=== PATIENT | male | born 1935 | race Caucasian/White ===

== ENCOUNTER 2017-12-10 15:45 | Emergency (ER) | payer MEDICARE, SELFPAY ==
[2017-12-10 16:02] VITALS: BP 178/88; PULSE 93; RESP 13; TEMP 36.6; O2SAT 98
--- NOTE | 2017-12-10 16:32 | DI.CT.S_ITS ---
PROCEDURE: CT HEAD/BRAIN WO CON INDICATIONS: ETOH fall TECHNIQUE: Noncontrast 4.5 mm thick angled axial sections acquired from the foramen magnum to the vertex, with coronal and sagittal reformats. For radiation dose reduction, the following was used: automated exposure control, adjustment of mA and/or kV according to patient size. COMPARISON: None. FINDINGS: Image quality: Excellent. CSF spaces: Basal cisterns are patent. No extra-axial fluid collections. The ventricles are symmetric in size and shape. Brain: No intracranial bleeds or masses. There is cerebral volume loss for age, with resultant ventricular and sulcal prominence. There are periventricular and deep white matter chronic small vessel ischemic changes. There is intracranial internal carotid artery and vertebral artery atherosclerosis. Skull and face: Calvarium and visualized facial bones appear intact, without suspicious lesions. Sinuses: Visualized sinuses and mastoids are clear. IMPRESSION: No acute intracranial disease process. Dictated by: Lenora Braxton MD, PhD on 12/10/2017 at 16:58 Approved by: Lenora Braxton MD, PhD on 12/10/2017 at 17:00
--- NOTE | 2017-12-10 16:32 | DI.CT.S_ITS ---
PROCEDURE: CT CERVICAL SPINE WO CON INDICATIONS: fall ETOH TECHNIQUE: Noncontrast 3 mm thick sections acquired from the skull base to the T4 level. Sagittal and coronal reformats were then constructed. For radiation dose reduction, the following was used: automated exposure control, adjustment of mA and/or kV according to patient size. COMPARISON: None. FINDINGS: Image quality: Excellent. Bones: No fractures or dislocations. Visualized superior ribs are intact. Soft tissues: Prevertebral soft tissues are normal in thickness. No paravertebral hematomas. No apical pneumothoraces. 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 Dictated by: Todd Graff M.D. on 12/10/2017 at 17:00 Approved by: Todd Graff M.D. on 12/10/2017 at 17:01
--- NOTE | 2017-12-10 16:47 | PC.NURSE ---
Pt reports fell forward slipped on tile floor approx 16 hours ago, was holding a glass that broke upon impact, struck his face on broken glass. He denies loc/dizziness/nausea, multiple lacerations to lt cheek/nose/lt brow, denies headache, reports midline neck pain that is tender on exam, placed in c-collar at time of exam, MD Duong notified
[2017-12-10] MEDS: TET,DIPH,PERTUSS(ACELL),VAC/PF 0.5 ML SYRINGE IM (17:43)
--- NOTE | 2017-12-10 17:43 | ED.HEATRA ---
HPI - Head Injury General Chief complaint: Trauma Stated complaint: FALL, HIT HEAD Time Seen by Provider: 12/10/17 16:32 Source: patient History of Present Illness HPI Narrative: Patient is a 82-year-old male who presents after ground level fall. Last night he admits to drinking 3 glasses of bourbon with about 4 shots each. He fell landing on his face needed cut himself last evening on a glass. He has 5 cm laceration on his cheek. He has other facial abrasions. Denies any neck pain numbness or tingling. He is ambulatory. MD Complaint: head injury Related Data Home Medications Medication Instructions Recorded Confirmed CA PANTOTHENATE/FOLIC ACID/VIT 1 tab PO QDAY #0 10/07/10 (MULTIVITAMIN) FLAXSEED (FLAXSEED OIL) 1 cap PO Q DAY #0 10/07/10 [OMEGA 3] 1 tab PO Q DAY #0 10/07/10 amlodipine [Norvasc] 5 mg PO QDAY #0 10/07/10 Previous Rx's Medication Instructions Recorded hydrochlorothiazide 25 mg PO QDAY 14 Days #0 tab 03/16/16 hydrocodone-acetaminophen [[place]well] 1 tab PO Q6HP PRN #10 tab 03/16/16 Allergies Allergy/AdvReac Type Severity Reaction Status Date / Time No Known Allergies Allergy Verified 12/10/17 16:37 Review of Systems Review of Systems GENERAL: Denies chills, fatigue, malaise, fever, sweats, travel HEENT: Denies sinus pain, ear pain, sore throat, difficulty swallowing, neck pain RESPIRATORY: Denies dyspnea, cough, wheezing, hemoptysis, sputum. CARDIOVASCULAR: Denies chest pain, palpitations, orthopnea, edema GASTROINTESTINAL: Denies nausea, vomiting, abdominal pain, diarrhea, constipation, melena. : Denies dysuria, frequency, incontinence, hematuria, urinary retention, flank pain. MUSCULOSKELETAL: Denies weakness, joint pain, or bony pain SKIN: see HPI NEUROLOGIC: Denies weakness, dizziness, headache, numbness, change in speech, confusion PSYCHIATRIC: No concerning psychosocial issues. 12 point review of systems is negative except for those stated above and HPI PFSH Social History Smoking Status: Never smoker Exam Initial Vital Signs Initial Vital Signs: Vital Signs Temperature 97.8 F 12/10/17 16:02 Pulse Rate 93 H 12/10/17 16:02 Respiratory Rate 13 12/10/17 16:02 Blood Pressure 178/88 H 12/10/17 16:02 Pulse Oximetry 98 12/10/17 16:02 Const General: cooperative and frail appearing Nutritional Appearance: well nourished Orientation: alert, awake, oriented x3 and not confused [facility] Head: normal to inspection Face and sinus: abrasion (left supra orbial, nose chin) Eyes General: appearance normal, both eyes and all related structures Neck Neck: normal visual inspection and full ROM Chest Chest: normal inspection of the chest Resp Effort & Inspection: normal respiratory effort, able to speak in complete sentences, no respiratory distress and no use of accessory muscles Auscultation: clear to auscultation bilaterally, no rales, no rhonchi and no wheezes Cardio Rate: regular rate Rhythm: regular rhythm Heart Sounds: no click, no gallops, no murmurs and no rubs Pulses: normal peripheral pulses GI Inspection: non-distended Palpation: soft, no hepatosplenomegaly, No guarding, No pulsatile mass and No tender Auscultation: normal bowel sounds Back/Spine/Pelvis Back: normal to inspection and No back tenderness Cervical Spine: normal cervical lordosis and collar present (placed in ED) Skin Trauma: laceration (5cm laceration left check, good skin approximation) Neuro General: alert, awake and oriented x3 Cranial Nerves: CN's II-XI intact bilaterally Extrem General: normal to inspection, full ROM, capillary refill normal and no clubbing, cyanosis or edema Procedures Laceration Repair Laceration 1: Site: face Side (If applicable): left Size (cm): 5 Description: linear Depth: simple, single layer Pre-repair: wound explored, irrigated extensively and deep structures intact Size (cm): other (Steri-Strips) Course Orders Ordered: Discontinued Medications Diphtheria/Tetanus/Acell Pertussis (Adacel) 0.5 ml IM .ONCE ONE Stop: 12/10/17 16:37 Last Admin: 12/10/17 17:43 Dose: 0.5 ml Vital Signs - 8 hr 12/10/17 16:02 Temperature 97.8 F Pulse Rate 93 H Respiratory Rate 13 Blood Pressure 178/88 H Pulse Oximetry 98 MDM - Head Injury Imaging Data CT scan - head: Radiologist's impression: PROCEDURE: CT HEAD/BRAIN WO CON INDICATIONS: ETOH fall TECHNIQUE: Noncontrast 4.5 mm thick angled axial sections acquired from the foramen magnum to the vertex, with coronal and sagittal reformats. For radiation dose reduction, the following was used: automated exposure control, adjustment of mA and/or kV according to patient size. COMPARISON: None. FINDINGS: Image quality: Excellent. CSF spaces: Basal cisterns are patent. No extra-axial fluid collections. The ventricles are symmetric in size and shape. Brain: No intracranial bleeds or masses. There is cerebral volume loss for age, with resultant ventricular and sulcal prominence. There are periventricular and deep white matter chronic small vessel ischemic changes. There is intracranial internal carotid artery and vertebral artery atherosclerosis. Skull and face: Calvarium and visualized facial bones appear intact, without suspicious lesions. Sinuses: Visualized sinuses and mastoids are clear. IMPRESSION: No acute intracranial disease process. CT c-spine: Radiologist's impression: [place] [address] CT Scan Report Signed Patient: Yonny Billings MR#: [id number] : 1935 Acct:[id number] Age/Sex: 82 / M Date of Service: 12/10/17 Loc: ED Accession Number: [id number] Procedure: CT cervical spine wo con Ordering Provider: Tracey Duong D.O. PROCEDURE: CT CERVICAL SPINE WO CON INDICATIONS: fall ETOH TECHNIQUE: Noncontrast 3 mm thick sections acquired from the skull base to the T4 level. Sagittal and coronal reformats were then constructed. For radiation dose reduction, the following was used: automated exposure control, adjustment of mA and/or kV according to patient size. COMPARISON: None. FINDINGS: Image quality: Excellent. Bones: No fractures or dislocations. Visualized superior ribs are intact. Soft tissues: Prevertebral soft tissues are normal in thickness. No paravertebral hematomas. No apical pneumothoraces. 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 Dictated by: Todd Graff M.D. on 12/10/2017 at 17:00 Discharge Plan Departure Patient Disposition: Home Clinical Impression: Closed head injury Discharge Date/Time: 12/10/17 18:38 Interventions: ED Discharge Assessment Last Done: 08/27/18 18:35 Instructions: DI for Laceration Repair Steri-Strips, Closed Head Injury Activity Restrictions/Additional Instructions: *You have been diagnosed with facial laceration, closed head injury *What to do: Steri-Strips will fall off on their own, keep close watch for infection *Continue to take medications as directed *Follow up with your primary care provider in 2-3 days *Return to ER if you should have redness, pus, swelling or any new, worsening or concerning symptoms Prescriptions: No Action amlodipine [Norvasc] 5 MG tablet 5 mg PO QDAY Qty: 0 RF: 0 CA PANTOTHENATE/FOLIC ACID/VIT (MULTIVITAMIN) 1 tab PO QDAY Qty: 0 RF: 0 [OMEGA 3] 1 tab PO Q DAY Qty: 0 RF: 0 FLAXSEED (FLAXSEED OIL) 1 cap PO Q DAY Qty: 0 RF: 0 hydrocodone-acetaminophen [Burwell] 5 MG/325 MG tablet 1 tab PO Q6HP PRNQty: 10 RF: 0 hydrochlorothiazide 25 MG tablet 25 mg PO QDAY 14 Days Qty: 0 RF: 0
--- NOTE | 2017-12-10 17:57 | ED_ITS ---
HPI - Head Injury General Chief complaint: Trauma Stated complaint: FALL, HIT HEAD Time Seen by Provider: 12/10/17 16:32 Source: patient History of Present Illness HPI Narrative: Patient is a 82-year-old male who presents after ground level fall. Last night he admits to drinking 3 glasses of bourbon with about 4 shots each. He fell landing on his face needed cut himself last evening on a glass. He has 5 cm laceration on his cheek. He has other facial abrasions. Denies any neck pain numbness or tingling. He is ambulatory. MD Complaint: head injury Related Data Home Medications Medication Instructions Recorded Confirmed CA PANTOTHENATE/FOLIC ACID/VIT 1 tab PO QDAY #0 10/07/10 (MULTIVITAMIN) FLAXSEED (FLAXSEED OIL) 1 cap PO Q DAY #0 10/07/10 [OMEGA 3] 1 tab PO Q DAY #0 10/07/10 amlodipine [Norvasc] 5 mg PO QDAY #0 10/07/10 Previous Rx's Medication Instructions Recorded hydrochlorothiazide 25 mg PO QDAY 14 Days #0 tab 03/16/16 hydrocodone-acetaminophen [[place]] 1 tab PO Q6HP PRN #10 tab 03/16/16 Allergies Allergy/AdvReac Type Severity Reaction Status Date / Time No Known Allergies Allergy Verified 12/10/17 16:37 Review of Systems Review of Systems GENERAL: Denies chills, fatigue, malaise, fever, sweats, travel HEENT: Denies sinus pain, ear pain, sore throat, difficulty swallowing, neck pain RESPIRATORY: Denies dyspnea, cough, wheezing, hemoptysis, sputum. CARDIOVASCULAR: Denies chest pain, palpitations, orthopnea, edema GASTROINTESTINAL: Denies nausea, vomiting, abdominal pain, diarrhea, constipation, melena. : Denies dysuria, frequency, incontinence, hematuria, urinary retention, flank pain. MUSCULOSKELETAL: Denies weakness, joint pain, or bony pain SKIN: see HPI NEUROLOGIC: Denies weakness, dizziness, headache, numbness, change in speech, confusion PSYCHIATRIC: No concerning psychosocial issues. 12 point review of systems is negative except for those stated above and HPI PFSH Social History Smoking Status: Never smoker Exam Initial Vital Signs Initial Vital Signs: Vital Signs Temperature 97.8 F 12/10/17 16:02 Pulse Rate 93 H 12/10/17 16:02 Respiratory Rate 13 12/10/17 16:02 Blood Pressure 178/88 H 12/10/17 16:02 Pulse Oximetry 98 12/10/17 16:02 Const General: cooperative and frail appearing Nutritional Appearance: well nourished Orientation: alert, awake, oriented x3 and not confused [facility] Head: normal to inspection Face and sinus: abrasion (left supra orbial, nose chin) Eyes General: appearance normal, both eyes and all related structures Neck Neck: normal visual inspection and full ROM Chest Chest: normal inspection of the chest Resp Effort & Inspection: normal respiratory effort, able to speak in complete sentences, no respiratory distress and no use of accessory muscles Auscultation: clear to auscultation bilaterally, no rales, no rhonchi and no wheezes Cardio Rate: regular rate Rhythm: regular rhythm Heart Sounds: no click, no gallops, no murmurs and no rubs Pulses: normal peripheral pulses GI Inspection: non-distended Palpation: soft, no hepatosplenomegaly, No guarding, No pulsatile mass and No tender Auscultation: normal bowel sounds Back/Spine/Pelvis Back: normal to inspection and No back tenderness Cervical Spine: normal cervical lordosis and collar present (placed in ED) Skin Trauma: laceration (5cm laceration left check, good skin approximation) Neuro General: alert, awake and oriented x3 Cranial Nerves: CN's II-XI intact bilaterally Extrem General: normal to inspection, full ROM, capillary refill normal and no clubbing , cyanosis or edema Procedures Laceration Repair Laceration 1: Site: face Side (If applicable): left Size (cm): 5 Description: linear Depth: simple, single layer Pre-repair: wound explored, irrigated extensively and deep structures intact Size (cm): other (Steri-Strips) Course Orders Ordered: Discontinued Medications Diphtheria/Tetanus/Acell Pertussis (Adacel) 0.5 ml IM .ONCE ONE Stop: 12/10/17 16:37 Last Admin: 12/10/17 17:43 Dose: 0.5 ml Vital Signs - 8 hr 12/10/17 16:02 Temperature 97.8 F Pulse Rate 93 H Respiratory Rate 13 Blood Pressure 178/88 H Pulse Oximetry 98 MDM - Head Injury Imaging Data CT scan - head: Radiologist's impression: PROCEDURE: CT HEAD/BRAIN WO CON INDICATIONS: ETOH fall TECHNIQUE: Noncontrast 4.5 mm thick angled axial sections acquired from the foramen magnum to the vertex, with coronal and sagittal reformats. For radiation dose reduction, the following was used: automated exposure control, adjustment of mA and/or kV according to patient size. COMPARISON: None. FINDINGS: Image quality: Excellent. CSF spaces: Basal cisterns are patent. No extra-axial fluid collections. The ventricles are symmetric in size and shape. Brain: No intracranial bleeds or masses. There is cerebral volume loss for age , with resultant ventricular and sulcal prominence. There are periventricular and deep white matter chronic small vessel ischemic changes. There is intracranial internal carotid artery and vertebral artery atherosclerosis. Skull and face: Calvarium and visualized facial bones appear intact, without suspicious lesions. Sinuses: Visualized sinuses and mastoids are clear. IMPRESSION: No acute intracranial disease process. CT c-spine: Radiologist's impression: [place] [address] CT Scan Report Signed Patient: Yonny Billings MR#: [id number] : 1935 Acct:[id number] Age/Sex: 82 / M Date of Service: 12/10/17 Loc: ED Accession Number: [id number] Procedure: CT cervical spine wo con Ordering Provider: Tracey Duong D.O. PROCEDURE: CT CERVICAL SPINE WO CON INDICATIONS: fall ETOH TECHNIQUE: Noncontrast 3 mm thick sections acquired from the skull base to the T4 level. Sagittal and coronal reformats were then constructed. For radiation dose reduction, the following was used: automated exposure control, adjustment of mA and/or kV according to patient size. COMPARISON: None. FINDINGS: Image quality: Excellent. Bones: No fractures or dislocations. Visualized superior ribs are intact. Soft tissues: Prevertebral soft tissues are normal in thickness. No paravertebral hematomas. No apical pneumothoraces. 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 Dictated by: Todd Graff M.D. on 12/10/2017 at 17:00 Discharge Plan Departure Patient Disposition: Home Clinical Impression: Closed head injury Discharge Date/Time: 12/10/17 18:38 Interventions: ED Discharge Assessment Last Done: 08/27/18 18:35 Instructions: DI for Laceration Repair Steri-Strips, Closed Head Injury Activity Restrictions/Additional Instructions: *You have been diagnosed with facial laceration, closed head injury *What to do: Steri-Strips will fall off on their own, keep close watch for infection *Continue to take medications as directed *Follow up with your primary care provider in 2-3 days *Return to ER if you should have redness, pus, swelling or any new, worsening or concerning symptoms Prescriptions: No Action amlodipine [Norvasc] 5 MG tablet 5 mg PO QDAY Qty: 0 RF: 0 CA PANTOTHENATE/FOLIC ACID/VIT (MULTIVITAMIN) 1 tab PO QDAY Qty: 0 RF: 0 [OMEGA 3] 1 tab PO Q DAY Qty: 0 RF: 0 FLAXSEED (FLAXSEED OIL) 1 cap PO Q DAY Qty: 0 RF: 0 hydrocodone-acetaminophen [[place]] 5 MG/325 MG tablet 1 tab PO Q6HP PRNQty: 10 RF: 0 hydrochlorothiazide 25 MG tablet 25 mg PO QDAY 14 Days Qty: 0 RF: 0
[2017-12-10 18:31] VITALS: BP 176/69; PULSE 83; RESP 16; O2SAT 99
[2017-12-10 18:35] VITALS: BP 176/69; PULSE 80; RESP 13; O2SAT 99
== END 2017-12-10 18:38 | disposition home or self-care (01) ==
PROVIDERS: Emergency Provider Emergency Medicine
DX: S01.419A Laceration without foreign body of unspecified cheek and temporomandibular area, initial encounter (principal); S09.90XA Unspecified injury of head, initial encounter; W01.110A Fall on same level from slipping, tripping and stumbling with subsequent striking against sharp glass, initial encounter
CPT/HCPCS: 12013; 70450; 72125; 90471; 99282; 99284; 90715

== ENCOUNTER → 2018-12-30 14:50 | Outpatient (CLI) | payer MEDICARE, SELFPAY ==
[2018-12-30 16:03] LABS: Add Manual Diff / Slide Review NO; Basophils Absolute Auto 0 /uL (0-100); Basophils Percent Auto 0.3 % (0-2); Eosinophils Absolute Auto 0 /uL (0-450); Eosinophils Percent Auto 0.6 % (2-4); Hematocrit 40.1 % (41-53); Hemoglobin 14.2 g/dL (13.5-17.5); Lymphocytes Absolute Auto 700 /uL (1100-4500); Lymphocytes Percent Auto 14.6 % (25-40); Mean Corpuscular HGB Conc 35.3 % (30-36); Mean Corpuscular Hemoglobin 35.5 PG (26-34); Mean Corpuscular Volume 100.5 fL (80-100); Monocytes Absolute Auto 500 /uL (0-900); Monocytes Percent Auto 10.6 % (3-14); Neutrophils Absolute Auto 3300 /uL (1500-7000); Neutrophils Percent Auto 73.9 % (50-75); Platelet Count 174 X10^3/uL (150-400); Red Blood Cell Count 3.99 X10^6/uL (4.5-5.9); Red Cell Distribution Width 14.2 % (11.6-14.8); White Blood Cell Count 4.5 X10^3/uL (4.5-11.0)
[2018-12-30 16:35] LABS: Alanine Aminotransferase 32 IU/L (21-72); Albumin 4.5 g/dL (3.5-5.0); Alkaline Phosphatase 52 U/L (38-126); Aspartate Aminotransferase 43 IU/L (17-59); Blood Urea Nitrogen 20 mg/dL (9-20); Calcium 9.8 mg/dL (8.4-10.2); Carbon Dioxide 31 mmol/L (22-32); Chloride 90 mmol/L (98-107); Estimated Glomerular Filt Rate > 60.0 mL/min (>60); Globulin 2.3 g/dL (1.7-4.1); Glucose 130 mg/dL (80-110); HEMOLYSIS < 15 (0-50); Magnesium 1.5 mg/dL (1.6-2.3); Potassium 4.4 mmol/L (3.4-5.1); Sodium 133 mmol/L (137-145); Total Protein 6.8 g/dL (6.3-8.2)
[2018-12-30 17:08] LABS: TSH w/ Reflex to FT4 1.42 uIU/mL (0.47-4.68)
== END ==
PROVIDERS: Family Provider Naturopath; PCP Internal Medicine; Visit Provider Internal Medicine
DX: I10 Essential (primary) hypertension (principal); G31.84 Mild cognitive impairment of uncertain or unknown etiology; R00.2 Palpitations
CPT/HCPCS: 36415; 80053; 83735; 84443; 85025

== ENCOUNTER 2019-06-20 15:00 | Emergency (ER) | payer MEDICARE, SELFPAY ==
[2019-06-20 15:09] VITALS: BP 189/81; PULSE 104; RESP 20; TEMP 37.5; O2SAT 98; BMI 22.8
[2019-06-20 16:33] VITALS: BP 145/64; PULSE 96; RESP 14; O2SAT 99
--- NOTE | 2019-06-20 16:43 | DI.RAD.S_ITS ---
PROCEDURE: XR CHEST 1V INDICATIONS: suspected sepsis TECHNIQUE: One view of the chest was acquired. COMPARISON: None. FINDINGS: Surgical changes and devices: None. Lungs and pleura: Lungs are clear. No pleural effusions or pneumothorax. Mediastinum: Mediastinal contours appear normal. Heart size is normal. Bones and chest wall: No suspicious bony lesions. Overlying soft tissues appear unremarkable. IMPRESSION: No acute process. Dictated by: Moe Huynh M.D. on 06/20/2019 at 18:14 Approved by: Moe Huynh M.D. on 06/20/2019 at 18:14
[2019-06-20 17:16] LABS: Add Manual Diff / Slide Review NO; Basophils Absolute Auto 0 /uL (0-100); Basophils Percent Auto 0.6 % (0-2); Eosinophils Absolute Auto 0 /uL (0-450); Eosinophils Percent Auto 0.1 % (2-4); Hematocrit 39.7 % (41-53); Hemoglobin 13.6 g/dL (13.5-17.5); Lymphocytes Absolute Auto 900 /uL (1100-4500); Lymphocytes Percent Auto 14.1 % (25-40); Mean Corpuscular HGB Conc 34.4 % (30-36); Mean Corpuscular Hemoglobin 34.7 PG (26-34); Mean Corpuscular Volume 100.9 fL (80-100); Monocytes Absolute Auto 700 /uL (0-900); Monocytes Percent Auto 10.8 % (3-14); Neutrophils Absolute Auto 5000 /uL (1500-7000); Neutrophils Percent Auto 74.4 % (50-75); Platelet Count 205 X10^3/uL (150-400); Red Blood Cell Count 3.93 X10^6/uL (4.5-5.9); Red Cell Distribution Width 13.8 % (11.6-14.8); White Blood Cell Count 6.7 X10^3/uL (4.5-11.0)
[2019-06-20 17:26] LABS: PTT Partial Thromboplastin Tim 28 SECONDS (26.4-36.2)
[2019-06-20 17:27] LABS: Alanine Aminotransferase 24 IU/L (<50); Albumin 4.1 g/dL (3.5-5.0); Albumin Globulin Ratio 1.5 (1.0-2.8); Alkaline Phosphatase 51 U/L (38-126); Aspartate Aminotransferase 51 IU/L (17-59); BUN Creatinine Ratio 27.1 (6-22); Bilirubin Total 0.7 mg/dL (0.2-1.3); Blood Urea Nitrogen 19 mg/dL (9-20); Calcium 9.7 mg/dL (8.4-10.2); Carbon Dioxide 30 mmol/L (22-32); Chloride 101 mmol/L (98-107); Estimated Glomerular Filt Rate > 60.0 mL/min (>60); Globulin 2.8 g/dL (1.7-4.1); Glucose 152 mg/dL (80-110); HEMOLYSIS < 15 (0-50); Lactate (Lactic Acid) 1.4 mmol/L (0.7-2.1); Lipase 75 U/L (23-300); Potassium 4.3 mmol/L (3.4-5.1); Sodium 136 mmol/L (137-145); Total Protein 6.9 g/dL (6.3-8.2)
--- NOTE | 2019-06-20 17:33 | DI.RAD.S_ITS ---
PROCEDURE: XR ELBOW LT MIN 3V INDICATIONS: pain sp fall TECHNIQUE: 3 views of the elbow were acquired. COMPARISON: None. FINDINGS: Bones: No acute fractures or dislocations. Well-corticated bony fragments adjacent to the olecranon process. No suspicious bony lesions. Soft tissues: Assessment for effusion is limited by obliquity. No suspicious soft tissue calcifications. IMPRESSION: No acute fracture. No osseous lesion. If symptoms and/or clinical suspicion for pathology persist, further assessment with repeat, or advanced imaging (e.g., CT, MRI, or bone scan) may be helpful for further assessment. Dictated by: Moe Huynh M.D. on 06/20/2019 at 18:15 Approved by: Moe Huynh M.D. on 06/20/2019 at 18:15
--- NOTE | 2019-06-20 17:33 | DI.CT.S_ITS ---
PROCEDURE: CT HEAD/BRAIN WO CON INDICATIONS: mult glfs TECHNIQUE: Noncontrast 4.5 mm thick angled axial sections acquired from the foramen magnum to the vertex, with coronal and sagittal reformats. For radiation dose reduction, the following was used: automated exposure control, adjustment of mA and/or kV according to patient size. COMPARISON: Merged With [facility], CT, CT HEAD/BRAIN WO CON, 12/10/2017, 16:35. FINDINGS: Image quality: Excellent. CSF spaces: Basal cisterns are patent. No extra-axial fluid collections. The ventricles are symmetric in size and shape. Brain: No intracranial bleeds or masses. There is cerebral volume loss for age, with resultant ventricular and sulcal prominence. There are periventricular and deep white matter chronic small vessel ischemic changes. There is intracranial internal carotid artery atherosclerosis. Skull and face: Calvarium and visualized facial bones appear intact, without suspicious lesions. Sinuses: Visualized sinuses and mastoids are clear. IMPRESSION: No acute intracranial abnormality. Dictated by: Moe Huynh M.D. on 06/20/2019 at 18:02 Approved by: Moe Huynh M.D. on 06/20/2019 at 18:03
--- NOTE | 2019-06-20 17:33 | DI.RAD.S_ITS ---
PROCEDURE: XR THORACIC SPINE 2V INDICATIONS: glf pain TECHNIQUE: 2 views of the thoracic spine were acquired. COMPARISON: None. FINDINGS: Bones: No fractures or dislocations. No suspicious bony lesions. Visualized ribs are intact. Multilevel endplate osteophytes are present. Flowing osteophytes overlie the anterior aspect of the lower thoracic spine. Soft tissues: No paravertebral stripe thickening. IMPRESSION: Multilevel degenerative disc disease. No acute fracture. No osseous lesion. If symptoms and/or clinical suspicion for pathology persist, further assessment with repeat, or advanced imaging (e.g., CT, MRI, or bone scan) may be helpful for further assessment. Dictated by: Moe Huynh M.D. on 06/20/2019 at 18:14 Approved by: Moe Huynh M.D. on 06/20/2019 at 18:14
[2019-06-20 17:47] LABS: Ethanol (ETOH) < 10 mg/dL
[2019-06-20 17:59] LABS: Procalcitonin < 0.05 ng/mL (<0.5)
[2019-06-20] MEDS: SODIUM CHLORIDE 0.9% 1,000 ML 1000 ML IV (18:12)
[2019-06-20 18:26] LABS: Creatine Kinase 962 U/L (55-170)
[2019-06-20 18:40] LABS: NT-proBNP (BNP-Adult 18+) 735 pg/mL (<450); Troponin I 0.026 ng/mL (0.01-0.034)
[2019-06-20 18:42] LABS: CKMB % Relative Index 0.7 % (1.5-5.0); Creatine Kinase MB 6.43 ng/mL (<2.37)
[2019-06-20 18:53] VITALS: BP 161/74; PULSE 79; RESP 17; O2SAT 99
[2019-06-20 19:24] LABS: UR Morphine/Opiate cutoff 300 Negative (Negative); Ur Creatinine Normal (Normal); Ur Specific Gravity Normal (Normal); Urine Amphetamines Negative (Negative); Urine Barbiturates Negative (Negative); Urine Benzodiazepines Negative (Negative); Urine Cocaine Negative (Negative); Urine MDMA Negative (Negative); Urine Methadone Negative (Negative); Urine Methamphetamines Negative (Negative); Urine Oxycodone Negative (Negative); Urine Phencyclidine Negative (Negative); Urine Tetrahydrocannabinol Negative (Negative); Urine Tricyclic Antidepressant Negative (Negative); Urine pH Normal (Normal)
[2019-06-20 19:33] LABS: Bacteria Urine None Seen
[2019-06-20 19:46] LABS: Mucus Urine 1+ (Negative); RBC Urine 0-1/HPF (0-5/HPF); WBC Urine 0-1/HPF (0-5/HPF)
[2019-06-20 19:47] LABS: Culture Indicated Urine Cult Not Indicated
[2019-06-20 20:10] LABS: Creatine Kinase 917 U/L (55-170)
[2019-06-20 20:23] LABS: Troponin I 0.028 ng/mL (0.01-0.034)
[2019-06-20 20:26] LABS: CKMB % Relative Index 0.6 % (1.5-5.0); Creatine Kinase MB 5.59 ng/mL (<2.37)
[2019-06-20 20:30] VITALS: BP 182/82; PULSE 80; O2SAT 96
--- NOTE | 2019-06-20 20:56 | ED.WEAKNESS ---
HPI - Weakness <CARLIN CallBC - Last Filed: 06/20/19 23:58> General Chief complaint: Weakness Stated complaint: GLF, left arm pain Time Seen by Provider: 06/20/19 17:09 Source: patient and family Mode of arrival: Ambulatory Limitations: no limitations History of Present Illness HPI Narrative: The patient is an 83-year-old male non smoker alcoholic who presents with a chief complaint of a ground level fall and left arm pain. He presents by EMS. He fell yesterday base filler when trying to get out of bed to go to the bathroom, and was ?stuck? he had a cough that started this morning. Increasing fatigue and weakness per his daughters. The patient reportedly lives on [address] [facility]. He denies any fever, complains of cough that started this morning, denies any dysuria urgency or frequency. He denies any chest shortness of breath. Per daughter's the patient is an alcoholic. The patient states that he does not have any neck or back pain. Denies any incontinence of bowel, incontinence of bladder numbness in his groin. He states that he had some numbness in his left pinky finger in addition to the pain in his left elbow. He states that he had numbness in his left ring finger as well but that went away. He does not recall hitting his head any loss of consciousness and is not on any blood thinners. A modified trauma was consider, but not activated for this patient as he does not meet criteria. He denies any abdominal pain, nausea vomiting or diarrhea Related Data Home Medications Medication Instructions Recorded Confirmed lisinopril 10 mg PO DAILY 06/20/19 06/20/19 saw palmetto 160 mg PO DAILY 06/20/19 06/20/19 vitamin B complex 1 tab PO DAILY 06/20/19 06/20/19 Allergies Allergy/AdvReac Type Severity Reaction Status Date / Time No Known Allergies Allergy Verified 12/10/17 16:37 Review of Systems <AMBER Call - Last Filed: 06/20/19 23:58> Review of Systems Narrative: GENERAL: Denies chills, fatigue, malaise, fever, sweats. HEENT: Denies sinus pain, ear pain, sore throat, difficulty swallowing, dizziness. RESPIRATORY: Denies dyspnea, cough, wheezing, hemoptysis, sputum. CARDIOVASCULAR: Denies chest pain, palpitations, orthopnea, edema, GASTROINTESTINAL: See HPI : Denies dysuria, frequency, incontinence, hematuria, urinary retention. MUSCULOSKELETAL: See HPI SKIN: See HPI NEUROLOGIC: Denies weakness, headache, numbness, change in speech, confusion, seizures, incoordination. PSYCHIATRIC: No concerning psychosocial issues. 12 point review of systems is negative except for those stated above Patient History <[facility] - Last Filed: 06/20/19 23:58> Social History Smoking Status: Never smoker Smoking Status: Never smoker alcohol intake frequency: 3 or more drinks per day Substance Use Type: does not use Exam <Melinda Shore [facility] - Last Filed: 06/20/19 23:58> Narrative Exam Narrative: GENERAL: Chronically ill male in no acute distress HEAD: Atraumatic. Normocephalic. No temporal or scalp tenderness. EYES: Pupils equal round and reactive. Extraocular motions intact. No scleral icterus. No injection or drainage. ENT: Nose without bleeding, purulent drainage or septal hematoma. Throat without erythema, tonsillar hypertrophy or exudate. Uvula midline. Airway patent. NECK: Trachea midline. No JVD or lymphadenopathy. Supple, nontender, no meningeal signs. CARDIOVASCULAR: Regular rate and rhythm RESPIRATORY: Coarse bilaterally to auscultation. Breath sounds equal bilaterally. No wheezes, rales, or rhonchi. Slight dry cough noted on exam. GASTROINTESTINAL: Abdomen soft, non-tender, nondistended. No hepato-splenomegaly, or palpable masses. No guarding. Active bowel sounds all 4 quadrants EXTREMITIES: No clubbing, cyanosis, or edema. No joint tenderness, effusion, or edema noted. BACK: No pain to C-spine palpation. Pain to thoracic spine palpation. Slight swelling noted to right of T-spine with no overlying erythema or laceration. No pain to lumbar spine palpation. NEURO: AOx3. Interactive. Age appropriate. Not oriented to duration of emergency department stay. SKIN: Ecchymosis noted on left elbow. No Klein signs noted. No periorbital ecchymosis noted. Ecchymosis and abrasions noted to bilateral lower legs. Initial Vital Signs Initial Vital Signs: Vital Signs Temperature 99.5 F 06/20/19 15:09 Pulse Rate 104 H 06/20/19 15:09 Respiratory Rate 20 06/20/19 15:09 Blood Pressure 189/81 H 06/20/19 15:09 Pulse Oximetry 98 06/20/19 15:09 <Pernell Coelho DO - Last Filed: 06/21/19 17:25> Initial Vital Signs Initial Vital Signs: Vital Signs Temperature 99.5 F 06/20/19 15:09 Pulse Rate 104 H 06/20/19 15:09 Respiratory Rate 20 06/20/19 15:09 Blood Pressure 189/81 H 06/20/19 15:09 Pulse Oximetry 98 06/20/19 15:09 Scores <AMBER Call - Last Filed: 06/20/19 23:58> GCS Jez coma scale eye opening: Spontaneous [place] coma scale verbal response: Orientated Jez coma scale motor response: Obey commands Jez coma scale total score: 15 Course <AMBER Call - Last Filed: 06/20/19 23:58> Orders Ordered: Discontinued Medications Sodium Chloride (Normal Saline 0.9%) 1,000 mls @ 1,000 mls/hr IV BOLUS ONE Stop: 06/20/19 17:41 Last Admin: 06/20/19 18:12 Dose: 1,000 mls/hr Documented by: CVANCE Magnesium Sulfate 2 gm/ Folic Acid 1 mg/ Thiamine HCl 100 mg / Multivitamins 10 ml/ Sodium Chloride 1,015.2 mls @ 125 mls/hr IV NOW ONE Stop: 06/21/19 05:36 Vital Signs Vital signs: Vital Signs - 8 hr 06/20/19 16:33 06/20/19 18:53 06/20/19 20:30 Pulse Rate 96 H 79 80 Respiratory Rate 14 17 Blood Pressure [Left Arm] 145/64 H 161/74 H 182/82 H Pulse Oximetry 99 99 96 06/20/19 21:00 Pulse Rate 96 H Respiratory Rate 15 Blood Pressure [Left Arm] 162/92 H Pulse Oximetry 96 <Pernell Coelho DO - Last Filed: 06/21/19 17:25> Orders Ordered: Discontinued Medications Sodium Chloride (Normal Saline 0.9%) 1,000 mls @ 1,000 mls/hr IV BOLUS ONE Stop: 06/20/19 17:41 Last Admin: 06/20/19 18:12 Dose: 1,000 mls/hr Documented by: CVANCE Magnesium Sulfate 2 gm/ Folic Acid 1 mg/ Thiamine HCl 100 mg / Multivitamins 10 ml/ Sodium Chloride 1,015.2 mls @ 125 mls/hr IV NOW ONE Stop: 06/21/19 05:36 Vital Signs Vital signs: Vital Signs - 8 hr 06/20/19 16:33 06/20/19 18:53 06/20/19 20:30 Pulse Rate 96 H 79 80 Respiratory Rate 14 17 Blood Pressure [Left Arm] 145/64 H 161/74 H 182/82 H Pulse Oximetry 99 99 96 06/20/19 21:00 Pulse Rate 96 H Respiratory Rate 15 Blood Pressure [Left Arm] 162/92 H Pulse Oximetry 96 MDM - Weakness <JUSTEN Call- - Last Filed: 06/20/19 23:58> Lab Data Result diagrams: 06/20/19 17:02 06/20/19 17:02 Labs: Lab Results 06/20/19 06/20/19 06/20/19 Range/Units 17:02 17:02 17:02 WBC 6.7 (4.5-11.0) X10^3/uL RBC 3.93 L (4.5-5.9) X10^6/uL Hgb 13.6 (13.5-17.5) g/dL Hct 39.7 L (41-53) % MCV 100.9 H (80-100) fL MCH 34.7 H (26-34) PG MCHC 34.4 (30-36) % RDW 13.8 (11.6-14.8) % Plt Count 205 (150-400) X10^3/uL Neut % (Auto) 74.4 (50-75) % Lymph % (Auto) 14.1 L (25-40) % [place] % (Auto) 10.8 (3-14) % Eos % (Auto) 0.1 L (2-4) % Baso % (Auto) 0.6 (0-2) % Neut # (Auto) 5000 (9467-3375) /uL Lymph # (Auto) 900 L (9169-0647) /uL [place] # (Auto) 700 (0-900) /uL Eos # (Auto) 0 (0-450) /uL Baso # (Auto) 0 (0-100) /uL PT 11.0 (10.1-12.7) SECONDS INR 1.0 (0.9-1.3) APTT 28 (26.4-36.2) SECONDS Sodium (137-145) mmol/L Potassium (3.4-5.1) mmol/L Chloride (98-107) mmol/L Carbon Dioxide (22-32) mmol/L BUN (9-20) mg/dL Creatinine (0.66-1.25) mg/dL Estimated GFR (>60) mL/min BUN/Creatinine Ratio (6-22) Glucose (80-110) mg/dL Lactate (0.7-2.1) mmol/L Calcium (8.4-10.2) mg/dL Total Bilirubin (0.2-1.3) mg/dL AST (17-59) IU/L ALT (<50) IU/L Alkaline Phosphatase (38-126) U/L Total Creatine Kinase (55-170) U/L CK-MB (CK-2) (<2.37) ng/mL CK-MB (CK-2) Rel Index (1.5-5.0) % Troponin I (0.01-0.034) ng/mL NT-Pro-B Natriuret Pep (<450) pg/mL Total Protein (6.3-8.2) g/dL Albumin (3.5-5.0) g/dL Globulin (1.7-4.1) g/dL Albumin/Globulin Ratio (1.0-2.8) Lipase (23-300) U/L Procalcitonin < 0.05 (<0.5) ng/mL TSH (0.47-4.68) uIU/mL Urine RBC (0-5/HPF) Urine WBC (0-5/HPF) Urine Bacteria (None) Urine Mucus (Negative) Ur Culture Indicated? U Opiates 300ng/mL cut (Negative) Ur Oxycodone Screen (Negative) Urine Methadone Screen (Negative) Ur Barbiturates Screen (Negative) U Tricyclic Antidepress (Negative) Ur Phencyclidine Scrn (Negative) Ur Amphetamines Screen (Negative) U Methamphetamines Scrn (Negative) Ur MDMA Scrn (Ecstasy) (Negative) U Benzodiazepines Scrn (Negative) Urine Cocaine Screen (Negative) U Marijuana (THC) Screen (Negative) Ethyl Alcohol ( - 10) mg/dL 06/20/19 06/20/19 06/20/19 Range/Units 17:02 17:02 17:02 WBC (4.5-11.0) X10^3/uL RBC (4.5-5.9) X10^6/uL Hgb (13.5-17.5) g/dL Hct (41-53) % MCV (80-100) fL MCH (26-34) PG MCHC (30-36) % RDW (11.6-14.8) % Plt Count (150-400) X10^3/uL Neut % (Auto) (50-75) % Lymph % (Auto) (25-40) % [place] % (Auto) (3-14) % Eos % (Auto) (2-4) % Baso % (Auto) (0-2) % Neut # (Auto) (9195-6288) /uL Lymph # (Auto) (7184-9136) /uL [place] # (Auto) (0-900) /uL Eos # (Auto) (0-450) /uL Baso # (Auto) (0-100) /uL PT (10.1-12.7) SECONDS INR (0.9-1.3) APTT (26.4-36.2) SECONDS Sodium 136 L (137-145) mmol/L Potassium 4.3 (3.4-5.1) mmol/L Chloride 101 (98-107) mmol/L Carbon Dioxide 30 (22-32) mmol/L BUN 19 (9-20) mg/dL Creatinine 0.70 (0.66-1.25) mg/dL Estimated GFR > 60.0 (>60) mL/min BUN/Creatinine Ratio 27.1 H (6-22) Glucose 152 H (80-110) mg/dL Lactate 1.4 (0.7-2.1) mmol/L Calcium 9.7 (8.4-10.2) mg/dL Total Bilirubin 0.7 (0.2-1.3) mg/dL AST 51 (17-59) IU/L ALT 24 (<50) IU/L Alkaline Phosphatase 51 (38-126) U/L Total Creatine Kinase (55-170) U/L CK-MB (CK-2) (<2.37) ng/mL CK-MB (CK-2) Rel Index (1.5-5.0) % Troponin I (0.01-0.034) ng/mL NT-Pro-B Natriuret Pep (<450) pg/mL Total Protein 6.9 (6.3-8.2) g/dL Albumin 4.1 (3.5-5.0) g/dL Globulin 2.8 (1.7-4.1) g/dL Albumin/Globulin Ratio 1.5 (1.0-2.8) Lipase 75 (23-300) U/L Procalcitonin (<0.5) ng/mL TSH (0.47-4.68) uIU/mL Urine RBC (0-5/HPF) Urine WBC (0-5/HPF) Urine Bacteria (None) Urine Mucus (Negative) Ur Culture Indicated? U Opiates 300ng/mL cut (Negative) Ur Oxycodone Screen (Negative) Urine Methadone Screen (Negative) Ur Barbiturates Screen (Negative) U Tricyclic Antidepress (Negative) Ur Phencyclidine Scrn (Negative) Ur Amphetamines Screen (Negative) U Methamphetamines Scrn (Negative) Ur MDMA Scrn (Ecstasy) (Negative) U Benzodiazepines Scrn (Negative) Urine Cocaine Screen (Negative) U Marijuana (THC) Screen (Negative) Ethyl Alcohol < 10 ( - 10) mg/dL 06/20/19 06/20/19 06/20/19 Range/Units 17:02 17:02 19:10 WBC (4.5-11.0) X10^3/uL RBC (4.5-5.9) X10^6/uL Hgb (13.5-17.5) g/dL Hct (41-53) % MCV (80-100) fL MCH (26-34) PG MCHC (30-36) % RDW (11.6-14.8) % Plt Count (150-400) X10^3/uL Neut % (Auto) (50-75) % Lymph % (Auto) (25-40) % [place] % (Auto) (3-14) % Eos % (Auto) (2-4) % Baso % (Auto) (0-2) % Neut # (Auto) (1021-3952) /uL Lymph # (Auto) (7711-1994) /uL [place] # (Auto) (0-900) /uL Eos # (Auto) (0-450) /uL Baso # (Auto) (0-100) /uL PT (10.1-12.7) SECONDS INR (0.9-1.3) APTT (26.4-36.2) SECONDS Sodium (137-145) mmol/L Potassium (3.4-5.1) mmol/L Chloride (98-107) mmol/L Carbon Dioxide (22-32) mmol/L BUN (9-20) mg/dL Creatinine (0.66-1.25) mg/dL Estimated GFR (>60) mL/min BUN/Creatinine Ratio (6-22) Glucose (80-110) mg/dL Lactate (0.7-2.1) mmol/L Calcium (8.4-10.2) mg/dL Total Bilirubin (0.2-1.3) mg/dL AST (17-59) IU/L ALT (<50) IU/L Alkaline Phosphatase (38-126) U/L Total Creatine Kinase 962 H (55-170) U/L CK-MB (CK-2) 6.43 H (<2.37) ng/mL CK-MB (CK-2) Rel Index 0.7 L (1.5-5.0) % Troponin I 0.026 (0.01-0.034) ng/mL NT-Pro-B Natriuret Pep 735 H (<450) pg/mL Total Protein (6.3-8.2) g/dL Albumin (3.5-5.0) g/dL Globulin (1.7-4.1) g/dL Albumin/Globulin Ratio (1.0-2.8) Lipase (23-300) U/L Procalcitonin (<0.5) ng/mL TSH 1.24 (0.47-4.68) uIU/mL Urine RBC (0-5/HPF) Urine WBC (0-5/HPF) Urine Bacteria (None) Urine Mucus (Negative) Ur Culture Indicated? U Opiates 300ng/mL cut Negative (Negative) Ur Oxycodone Screen Negative (Negative) Urine Methadone Screen Negative (Negative) Ur Barbiturates Screen Negative (Negative) U Tricyclic Antidepress Negative (Negative) Ur Phencyclidine Scrn Negative (Negative) Ur Amphetamines Screen Negative (Negative) U Methamphetamines Scrn Negative (Negative) Ur MDMA Scrn (Ecstasy) Negative (Negative) U Benzodiazepines Scrn Negative (Negative) Urine Cocaine Screen Negative (Negative) U Marijuana (THC) Screen Negative (Negative) Ethyl Alcohol ( - 10) mg/dL 06/20/19 06/20/19 Range/Units 19:30 19:38 WBC (4.5-11.0) X10^3/uL RBC (4.5-5.9) X10^6/uL Hgb (13.5-17.5) g/dL Hct (41-53) % MCV (80-100) fL MCH (26-34) PG MCHC (30-36) % RDW (11.6-14.8) % Plt Count (150-400) X10^3/uL Neut % (Auto) (50-75) % Lymph % (Auto) (25-40) % [place] % (Auto) (3-14) % Eos % (Auto) (2-4) % Baso % (Auto) (0-2) % Neut # (Auto) (4468-7105) /uL Lymph # (Auto) (7423-0313) /uL [place] # (Auto) (0-900) /uL Eos # (Auto) (0-450) /uL Baso # (Auto) (0-100) /uL PT (10.1-12.7) SECONDS INR (0.9-1.3) APTT (26.4-36.2) SECONDS Sodium (137-145) mmol/L Potassium (3.4-5.1) mmol/L Chloride (98-107) mmol/L Carbon Dioxide (22-32) mmol/L BUN (9-20) mg/dL Creatinine (0.66-1.25) mg/dL Estimated GFR (>60) mL/min BUN/Creatinine Ratio (6-22) Glucose (80-110) mg/dL Lactate (0.7-2.1) mmol/L Calcium (8.4-10.2) mg/dL Total Bilirubin (0.2-1.3) mg/dL AST (17-59) IU/L ALT (<50) IU/L Alkaline Phosphatase (38-126) U/L Total Creatine Kinase 917 H (55-170) U/L CK-MB (CK-2) 5.59 H (<2.37) ng/mL CK-MB (CK-2) Rel Index 0.6 L (1.5-5.0) % Troponin I 0.028 (0.01-0.034) ng/mL NT-Pro-B Natriuret Pep (<450) pg/mL Total Protein (6.3-8.2) g/dL Albumin (3.5-5.0) g/dL Globulin (1.7-4.1) g/dL Albumin/Globulin Ratio (1.0-2.8) Lipase (23-300) U/L Procalcitonin (<0.5) ng/mL TSH (0.47-4.68) uIU/mL Urine RBC 0-1/hpf (0-5/HPF) Urine WBC 0-1/hpf (0-5/HPF) Urine Bacteria None seen (None) Urine Mucus 1+ H (Negative) Ur Culture Indicated? Cult not indicated U Opiates 300ng/mL cut (Negative) Ur Oxycodone Screen (Negative) Urine Methadone Screen (Negative) Ur Barbiturates Screen (Negative) U Tricyclic Antidepress (Negative) Ur Phencyclidine Scrn (Negative) Ur Amphetamines Screen (Negative) U Methamphetamines Scrn (Negative) Ur MDMA Scrn (Ecstasy) (Negative) U Benzodiazepines Scrn (Negative) Urine Cocaine Screen (Negative) U Marijuana (THC) Screen (Negative) Ethyl Alcohol ( - 10) mg/dL Urine Dip Bedside Urine Glucose Negative Bedside Urine Bilirubin - Negative Bedside Urine Ketone +/- 5 Urine Specific [place] 1.015 Bedside Urine Occult Blood - Negative Bedside Urine pH 7.0 Bedside Urine Protein + 30 Bedside Urine Urobilinogen - Negative Bedside Urine Nitrite - Negative Bedside Urine Leukocytes - Negative Esterase Imaging Data T-spine x-ray: Radiologist Impression: [address] [place] [address] XRay Report Signed Patient: Yonny Billings [facility]#: [id number] : 1936Acct:[id number] Age/Sex: 83 / MDate of Service: 06/20/19 Loc: ED Accession Number: [id number] Procedure: XR thoracic spine 2V Ordering Provider: Melinda Shore-JOSE PROCEDURE: XR THORACIC SPINE 2V INDICATIONS: glf pain TECHNIQUE: 2 views of the thoracic spine were acquired. COMPARISON: None. FINDINGS: Bones: No fractures or dislocations. No suspicious bony lesions. Visualized ribs are intact. Multilevel endplate osteophytes are present. Flowing osteophytes overlie the anterior aspect of the lower thoracic spine. Soft tissues: No paravertebral stripe thickening. IMPRESSION: Multilevel degenerative disc disease. No acute fracture. No osseous lesion. If symptoms and/or clinical suspicion for pathology persist, further assessment with repeat, or advanced imaging (e.g., CT, MRI, or bone scan) may be helpful for further assessment. Dictated by: Moe Huynh M.D. on 06/20/2019 at 18:14 Approved by: Moe Huynh M.D. on 06/20/2019 at 18:14 CT scan - head: Radiologist Impression: [address] [place] [address] CT Scan Report Signed Patient: Yonny Billings [facility]#: [id number] : 1936Acct:[id number] Age/Sex: 83 / MDate of Service: 06/20/19 Loc: ED Accession Number: [id number] Procedure: CT head/brain wo con Ordering Provider: Melinda Shore PROCEDURE: CT HEAD/BRAIN WO CON INDICATIONS: mult glfs TECHNIQUE: Noncontrast 4.5 mm thick angled axial sections acquired from the foramen magnum to the vertex, with coronal and sagittal reformats. For radiation dose reduction, the following was used: automated exposure control, adjustment of mA and/or kV according to patient size. COMPARISON: [facility], CT, CT HEAD/BRAIN WO CON, 12/10/2017, 16:35. FINDINGS: Image quality: Excellent. CSF spaces: Basal cisterns are patent. No extra-axial fluid collections. The ventricles are symmetric in size and shape. Brain: No intracranial bleeds or masses. There is cerebral volume loss for age, with resultant ventricular and sulcal prominence. There are periventricular and deep white matter chronic small vessel ischemic changes. There is intracranial internal carotid artery atherosclerosis. Skull and face: Calvarium and visualized facial bones appear intact, without suspicious lesions. Sinuses: Visualized sinuses and mastoids are clear. IMPRESSION: No acute intracranial abnormality. Dictated by: Moe Huynh M.D. on 06/20/2019 at 18:02 Approved by: Moe Huynh M.D. on 06/20/2019 at 18:03 Elbow x-ray: Radiologist Impression: [address] [place] [id number] XRay Report Signed Patient: Yonny Billings [facility]#: [id number] : [id number] Age/Sex: 83 / MDate of Service: 06/20/19 Loc: ED Accession Number: [id number] Procedure: XR elbow LT min 3V Ordering Provider: Melinda Shore PROCEDURE: XR ELBOW LT MIN 3V INDICATIONS: pain sp fall TECHNIQUE: 3 views of the elbow were acquired. COMPARISON: None. FINDINGS: Bones: No acute fractures or dislocations. Well-corticated bony fragments adjacent to the olecranon process. No suspicious bony lesions. Soft tissues: Assessment for effusion is limited by obliquity. No suspicious soft tissue calcifications. IMPRESSION: No acute fracture. No osseous lesion. If symptoms and/or clinical suspicion for pathology persist, further assessment with repeat, or advanced imaging (e.g., CT, MRI, or bone scan) may be helpful for further assessment. Dictated by: Moe Huynh M.D. on 06/20/2019 at 18:15 Approved by: Moe Huynh M.D. on 06/20/2019 at 18:15 Chest x-ray: Radiologist Impression: [address] [place] [id number] XRay Report Signed Patient: Yonny Billings [facility]#: [id number] : [id number] Age/Sex: 83 / MDate of Service: 06/20/19 Loc: ED Accession Number: [id number] Procedure: XR chest 1V Ordering Provider: Barb Epps MD PROCEDURE: XR CHEST 1V INDICATIONS: suspected sepsis TECHNIQUE: One view of the chest was acquired. COMPARISON: None. FINDINGS: Surgical changes and devices: None. Lungs and pleura: Lungs are clear. No pleural effusions or pneumothorax. Mediastinum: Mediastinal contours appear normal. Heart size is normal. Bones and chest wall: No suspicious bony lesions. Overlying soft tissues appear unremarkable. IMPRESSION: No acute process. Dictated by: Moe Huynh M.D. on 06/20/2019 at 18:14 Approved by: Moe Huynh M.D. on 06/20/2019 at 18:14 CT - cervical spine: Radiologist Impression: :Night read no acute fracture subluxation MDM Narrative Medical decision making narrative: The patient is an 83-year-old male who presents with a chief complaint of general weakness with his daughters. He had a ground level fall when he tried to get out of bed last night. He has a normal head CT which was obtained given his age and unclear mechanism. Plain films were obtained of his T-spine, elbow and they came back with no acute findings. Given that he has some numbness and tingling in his finger, I did offer to obtain imaging of his neck. The patient has no C-spine tenderness to palpation, no pain on cervical spine and movement, is GCS 15 and non intoxicated. He declines imaging of his neck and is appropriate to make those decisions. The patient's troponin comes back negative, as does his repeat troponin. CK is elevated in the 900s but not critical. His chest x-ray has no signs of pneumonia, and his urine has no signs of infection. Given the patient's history of multiple falls at home, alcoholism and dementia, I spoke with Todd RODRIGUEZ regarding possible admission for this patient. He feels as though patient does not need to be admitted at this time as there is no admitting diagnosis. I did make a CPS report online confirmation [id number]. I do feels that the patient needs to follow up with primary care provider in the next few days. The patient was given contact information for the [facility] Resource guide. The patient later relented to a CT of C-spine, and night read showed no acute abnormalities. I left a voicemail with [facility], placed a referral. Patient's and family were given [facility] resources. I discussed at length coming back to emergency department for any acute concerns such as further falls, concern of heart attack or stroke, etcetera patient has no questions or concerns upon discharge and states understanding of return precautions as well care as well as daughters. I tried to encourage the patient to go through with physical therapy as ordered by his primary care provider, he appears somewhat reticent to do so. <Pernelljory Coelho, DO - Last Filed: 06/21/19 17:25> Lab Data Labs: Lab Results 06/20/19 06/20/19 06/20/19 Range/Units 17:02 17:02 17:02 WBC 6.7 (4.5-11.0) X10^3/uL RBC 3.93 L (4.5-5.9) X10^6/uL Hgb 13.6 (13.5-17.5) g/dL Hct 39.7 L (41-53) % MCV 100.9 H (80-100) fL MCH 34.7 H (26-34) PG MCHC 34.4 (30-36) % RDW 13.8 (11.6-14.8) % Plt Count 205 (150-400) X10^3/uL Neut % (Auto) 74.4 (50-75) % Lymph % (Auto) 14.1 L (25-40) % [place] % (Auto) 10.8 (3-14) % Eos % (Auto) 0.1 L (2-4) % Baso % (Auto) 0.6 (0-2) % Neut # (Auto) 5000 (2671-5472) /uL Lymph # (Auto) 900 L (7468-8553) /uL [place] # (Auto) 700 (0-900) /uL Eos # (Auto) 0 (0-450) /uL Baso # (Auto) 0 (0-100) /uL PT 11.0 (10.1-12.7) SECONDS INR 1.0 (0.9-1.3) APTT 28 (26.4-36.2) SECONDS Sodium (137-145) mmol/L Potassium (3.4-5.1) mmol/L Chloride (98-107) mmol/L Carbon Dioxide (22-32) mmol/L BUN (9-20) mg/dL Creatinine (0.66-1.25) mg/dL Estimated GFR (>60) mL/min BUN/Creatinine Ratio (6-22) Glucose (80-110) mg/dL Lactate (0.7-2.1) mmol/L Calcium (8.4-10.2) mg/dL Total Bilirubin (0.2-1.3) mg/dL AST (17-59) IU/L ALT (<50) IU/L Alkaline Phosphatase (38-126) U/L Total Creatine Kinase (55-170) U/L CK-MB (CK-2) (<2.37) ng/mL CK-MB (CK-2) Rel Index (1.5-5.0) % Troponin I (0.01-0.034) ng/mL NT-Pro-B Natriuret Pep (<450) pg/mL Total Protein (6.3-8.2) g/dL Albumin (3.5-5.0) g/dL Globulin (1.7-4.1) g/dL Albumin/Globulin Ratio (1.0-2.8) Lipase (23-300) U/L Procalcitonin < 0.05 (<0.5) ng/mL TSH (0.47-4.68) uIU/mL Urine RBC (0-5/HPF) Urine WBC (0-5/HPF) Urine Bacteria (None) Urine Mucus (Negative) Ur Culture Indicated? U Opiates 300ng/mL cut (Negative) Ur Oxycodone Screen (Negative) Urine Methadone Screen (Negative) Ur Barbiturates Screen (Negative) U Tricyclic Antidepress (Negative) Ur Phencyclidine Scrn (Negative) Ur Amphetamines Screen (Negative) U Methamphetamines Scrn (Negative) Ur MDMA Scrn (Ecstasy) (Negative) U Benzodiazepines Scrn (Negative) Urine Cocaine Screen (Negative) U Marijuana (THC) Screen (Negative) Ethyl Alcohol ( - 10) mg/dL 06/20/19 06/20/19 06/20/19 Range/Units 17:02 17:02 17:02 WBC (4.5-11.0) X10^3/uL RBC (4.5-5.9) X10^6/uL Hgb (13.5-17.5) g/dL Hct (41-53) % MCV (80-100) fL MCH (26-34) PG MCHC (30-36) % RDW (11.6-14.8) % Plt Count (150-400) X10^3/uL Neut % (Auto) (50-75) % Lymph % (Auto) (25-40) % [place] % (Auto) (3-14) % Eos % (Auto) (2-4) % Baso % (Auto) (0-2) % Neut # (Auto) (3677-0480) /uL Lymph # (Auto) (2013-0848) /uL [place] # (Auto) (0-900) /uL Eos # (Auto) (0-450) /uL Baso # (Auto) (0-100) /uL PT (10.1-12.7) SECONDS INR (0.9-1.3) APTT (26.4-36.2) SECONDS Sodium 136 L (137-145) mmol/L Potassium 4.3 (3.4-5.1) mmol/L Chloride 101 (98-107) mmol/L Carbon Dioxide 30 (22-32) mmol/L BUN 19 (9-20) mg/dL Creatinine 0.70 (0.66-1.25) mg/dL Estimated GFR > 60.0 (>60) mL/min BUN/Creatinine Ratio 27.1 H (6-22) Glucose 152 H (80-110) mg/dL Lactate 1.4 (0.7-2.1) mmol/L Calcium 9.7 (8.4-10.2) mg/dL Total Bilirubin 0.7 (0.2-1.3) mg/dL AST 51 (17-59) IU/L ALT 24 (<50) IU/L Alkaline Phosphatase 51 (38-126) U/L Total Creatine Kinase (55-170) U/L CK-MB (CK-2) (<2.37) ng/mL CK-MB (CK-2) Rel Index (1.5-5.0) % Troponin I (0.01-0.034) ng/mL NT-Pro-B Natriuret Pep (<450) pg/mL Total Protein 6.9 (6.3-8.2) g/dL Albumin 4.1 (3.5-5.0) g/dL Globulin 2.8 (1.7-4.1) g/dL Albumin/Globulin Ratio 1.5 (1.0-2.8) Lipase 75 (23-300) U/L Procalcitonin (<0.5) ng/mL TSH (0.47-4.68) uIU/mL Urine RBC (0-5/HPF) Urine WBC (0-5/HPF) Urine Bacteria (None) Urine Mucus (Negative) Ur Culture Indicated? U Opiates 300ng/mL cut (Negative) Ur Oxycodone Screen (Negative) Urine Methadone Screen (Negative) Ur Barbiturates Screen (Negative) U Tricyclic Antidepress (Negative) Ur Phencyclidine Scrn (Negative) Ur Amphetamines Screen (Negative) U Methamphetamines Scrn (Negative) Ur MDMA Scrn (Ecstasy) (Negative) U Benzodiazepines Scrn (Negative) Urine Cocaine Screen (Negative) U Marijuana (THC) Screen (Negative) Ethyl Alcohol < 10 ( - 10) mg/dL 06/20/19 06/20/19 06/20/19 Range/Units 17:02 17:02 19:10 WBC (4.5-11.0) X10^3/uL RBC (4.5-5.9) X10^6/uL Hgb (13.5-17.5) g/dL Hct (41-53) % MCV (80-100) fL MCH (26-34) PG MCHC (30-36) % RDW (11.6-14.8) % Plt Count (150-400) X10^3/uL Neut % (Auto) (50-75) % Lymph % (Auto) (25-40) % [place] % (Auto) (3-14) % Eos % (Auto) (2-4) % Baso % (Auto) (0-2) % Neut # (Auto) (0639-5625) /uL Lymph # (Auto) (6226-9302) /uL [place] # (Auto) (0-900) /uL Eos # (Auto) (0-450) /uL Baso # (Auto) (0-100) /uL PT (10.1-12.7) SECONDS INR (0.9-1.3) APTT (26.4-36.2) SECONDS Sodium (137-145) mmol/L Potassium (3.4-5.1) mmol/L Chloride (98-107) mmol/L Carbon Dioxide (22-32) mmol/L BUN (9-20) mg/dL Creatinine (0.66-1.25) mg/dL Estimated GFR (>60) mL/min BUN/Creatinine Ratio (6-22) Glucose (80-110) mg/dL Lactate (0.7-2.1) mmol/L Calcium (8.4-10.2) mg/dL Total Bilirubin (0.2-1.3) mg/dL AST (17-59) IU/L ALT (<50) IU/L Alkaline Phosphatase (38-126) U/L Total Creatine Kinase 962 H (55-170) U/L CK-MB (CK-2) 6.43 H (<2.37) ng/mL CK-MB (CK-2) Rel Index 0.7 L (1.5-5.0) % Troponin I 0.026 (0.01-0.034) ng/mL NT-Pro-B Natriuret Pep 735 H (<450) pg/mL Total Protein (6.3-8.2) g/dL Albumin (3.5-5.0) g/dL Globulin (1.7-4.1) g/dL Albumin/Globulin Ratio (1.0-2.8) Lipase (23-300) U/L Procalcitonin (<0.5) ng/mL TSH 1.24 (0.47-4.68) uIU/mL Urine RBC (0-5/HPF) Urine WBC (0-5/HPF) Urine Bacteria (None) Urine Mucus (Negative) Ur Culture Indicated? U Opiates 300ng/mL cut Negative (Negative) Ur Oxycodone Screen Negative (Negative) Urine Methadone Screen Negative (Negative) Ur Barbiturates Screen Negative (Negative) U Tricyclic Antidepress Negative (Negative) Ur Phencyclidine Scrn Negative (Negative) Ur Amphetamines Screen Negative (Negative) U Methamphetamines Scrn Negative (Negative) Ur MDMA Scrn (Ecstasy) Negative (Negative) U Benzodiazepines Scrn Negative (Negative) Urine Cocaine Screen Negative (Negative) U Marijuana (THC) Screen Negative (Negative) Ethyl Alcohol ( - 10) mg/dL 06/20/19 06/20/19 Range/Units 19:30 19:38 WBC (4.5-11.0) X10^3/uL RBC (4.5-5.9) X10^6/uL Hgb (13.5-17.5) g/dL Hct (41-53) % MCV (80-100) fL MCH (26-34) PG MCHC (30-36) % RDW (11.6-14.8) % Plt Count (150-400) X10^3/uL Neut % (Auto) (50-75) % Lymph % (Auto) (25-40) % [place] % (Auto) (3-14) % Eos % (Auto) (2-4) % Baso % (Auto) (0-2) % Neut # (Auto) (6822-0724) /uL Lymph # (Auto) (4937-8972) /uL [place] # (Auto) (0-900) /uL Eos # (Auto) (0-450) /uL Baso # (Auto) (0-100) /uL PT (10.1-12.7) SECONDS INR (0.9-1.3) APTT (26.4-36.2) SECONDS Sodium (137-145) mmol/L Potassium (3.4-5.1) mmol/L Chloride (98-107) mmol/L Carbon Dioxide (22-32) mmol/L BUN (9-20) mg/dL Creatinine (0.66-1.25) mg/dL Estimated GFR (>60) mL/min BUN/Creatinine Ratio (6-22) Glucose (80-110) mg/dL Lactate (0.7-2.1) mmol/L Calcium (8.4-10.2) mg/dL Total Bilirubin (0.2-1.3) mg/dL AST (17-59) IU/L ALT (<50) IU/L Alkaline Phosphatase (38-126) U/L Total Creatine Kinase 917 H (55-170) U/L CK-MB (CK-2) 5.59 H (<2.37) ng/mL CK-MB (CK-2) Rel Index 0.6 L (1.5-5.0) % Troponin I 0.028 (0.01-0.034) ng/mL NT-Pro-B Natriuret Pep (<450) pg/mL Total Protein (6.3-8.2) g/dL Albumin (3.5-5.0) g/dL Globulin (1.7-4.1) g/dL Albumin/Globulin Ratio (1.0-2.8) Lipase (23-300) U/L Procalcitonin (<0.5) ng/mL TSH (0.47-4.68) uIU/mL Urine RBC 0-1/hpf (0-5/HPF) Urine WBC 0-1/hpf (0-5/HPF) Urine Bacteria None seen (None) Urine Mucus 1+ H (Negative) Ur Culture Indicated? Cult not indicated U Opiates 300ng/mL cut (Negative) Ur Oxycodone Screen (Negative) Urine Methadone Screen (Negative) Ur Barbiturates Screen (Negative) U Tricyclic Antidepress (Negative) Ur Phencyclidine Scrn (Negative) Ur Amphetamines Screen (Negative) U Methamphetamines Scrn (Negative) Ur MDMA Scrn (Ecstasy) (Negative) U Benzodiazepines Scrn (Negative) Urine Cocaine Screen (Negative) U Marijuana (THC) Screen (Negative) Ethyl Alcohol ( - 10) mg/dL Urine Dip Bedside Urine Glucose Negative Bedside Urine Bilirubin - Negative Bedside Urine Ketone +/- 5 Urine Specific [place] 1.015 Bedside Urine Occult Blood - Negative Bedside Urine pH 7.0 Bedside Urine Protein + 30 Bedside Urine Urobilinogen - Negative Bedside Urine Nitrite - Negative Bedside Urine Leukocytes - Negative Esterase Discharge Plan Departure Patient Disposition: Home Clinical Impression: Multiple falls, Alcohol use disorder, Multiple contusions, Abrasion Back pain Qualifiers: Back pain location: thoracic back pain Chronicity: acute Back pain laterality: bilateral Qualified Code(s): M54.6 - Pain in thoracic spine Discharge Date/Time: 06/20/19 23:58 Instructions: DI for Alcohol Abuse, How to Prevent Falls, DI for Elbow Pain, DI for Thoracic Back Pain Activity Restrictions/Additional Instructions: Please follow-up with primary care provider in the next few days. I have called our social worker clinical and left a message asking them to follow-up with you as well. Today we did images of your head, back, elbow chest and found no injuries. There is no evidence of pneumonia or urinary tract infection. Please come back to the emergency department for any acute concerns such as chest pain shortness of breath. I suggest following up with your PCP, they can recommend physical therapy etcetera I suggest to stop drinking alcohol For Prescriptions: No Action lisinopril 20 mg Tablet 10 mg PO DAILY RF: 0 saw palmetto 160 mg Capsule 160 mg PO DAILY RF: 0 vitamin B complex Tablet 1 tab PO DAILY RF: 0 Referrals: Gennaro Ruelas MD [Primary Care Provider] - <Pernell Coelho DO - Last Filed: 06/21/19 17:25> Sign Out Provider Sign Out Attestation: I was immediately available in the department for consultation. This documentation has been reviewed and I agree with assessment and plan. Supervised by Pernell Coelho DO
[2019-06-20 21:00] VITALS: BP 162/92; PULSE 96; RESP 15; O2SAT 96
[2019-06-20 21:26] LABS: Thyroid Stimulating Hormone 1.24 uIU/mL (0.47-4.68)
--- NOTE | 2019-06-20 21:29 | DI.CT.S_ITS ---
PROCEDURE: CT CERVICAL SPINE WO CON INDICATIONS: mult glfs TECHNIQUE: Noncontrast 3 mm thick sections acquired from the skull base to the T4 level. Sagittal and coronal reformats were then constructed. For radiation dose reduction, the following was used: automated exposure control, adjustment of mA and/or kV according to patient size. COMPARISON: [facility], CT, CT CERVICAL SPINE WO CON, 12/10/2017, 16:35. FINDINGS: Image quality: Excellent. Bones: No fractures or dislocations. Visualized superior ribs are intact. Degenerative changes including intervertebral disc space narrowing, endplate sclerosis, osteophytosis and flowing anterior syndesmophytes are present throughout the cervical and upper thoracic spine. Soft tissues: Prevertebral soft tissues are normal in thickness. No paravertebral hematomas. No apical pneumothoraces. IMPRESSION: No acute cervical spine injury. Severe degenerative change. These findings are concordant with the overnight interpretation. Dictated by: Roslyn Ram M.D. on 06/21/2019 at 7:08 Approved by: Roslyn Ram M.D. on 06/21/2019 at 7:11
[2019-06-20 23:56] VITALS: BP 182/84; PULSE 74; RESP 17; O2SAT 96
== END 2019-06-20 23:58 | disposition home or self-care (01) ==
PROVIDERS: Emergency Medicine; Emergency Provider Nurse Practitioner Family; Family Provider Naturopath; PCP Internal Medicine
DX: M54.6 Pain in thoracic spine (principal); S50.02XA Contusion of left elbow, initial encounter; S80.12XA Contusion of left lower leg, initial encounter; S80.11XA Contusion of right lower leg, initial encounter; R53.1 Weakness; R20.0 Anesthesia of skin; F03.90 Unspecified dementia, unspecified severity, without behavioral disturbance, psychotic disturbance, mood disturbance, and anxiety; Z72.89 Other problems related to lifestyle; R29.6 Repeated falls; W18.30XA Fall on same level, unspecified, initial encounter
CPT/HCPCS: 36415; 70450; 71045; 72070; 72125; 73080; 80053; 80305; 80320; 81003; 81015; 82550; 82553; 83605; 83690; 83880; 84145; 84443; 84484; 85025; 85610; 85730; 87040; 93005; 93010; 99284

== ENCOUNTER 2020-09-27 11:55 | Emergency (ER) | payer MEDICARE, SELFPAY ==
[2020-09-27 12:22] VITALS: BP 171/80; PULSE 79; RESP 19; TEMP 35.6; O2SAT 98; BMI 24.3
[2020-09-27 16:07] LABS: Add Manual Diff / Slide Review NO; Basophils Absolute Auto 0 /uL (0-100); Basophils Percent Auto 0.2 % (0-2); Eosinophils Absolute Auto 0 /uL (0-450); Eosinophils Percent Auto 0.1 % (2-4); Hematocrit 43.4 % (41-53); Hemoglobin 14.9 g/dL (13.5-17.5); Lymphocytes Absolute Auto 800 /uL (1100-4500); Lymphocytes Percent Auto 12.8 % (25-40); Mean Corpuscular HGB Conc 34.3 % (30-36); Mean Corpuscular Hemoglobin 33.1 PG (26-34); Mean Corpuscular Volume 96.5 fL (80-100); Monocytes Absolute Auto 400 /uL (0-900); Monocytes Percent Auto 6.1 % (3-14); Neutrophils Absolute Auto 5200 /uL (1500-7000); Neutrophils Percent Auto 80.8 % (50-75); Platelet Count 256 X10^3/uL (150-400); Red Cell Distribution Width 14.3 % (11.6-14.8); White Blood Cell Count 6.4 X10^3/uL (4.5-11.0)
[2020-09-27 16:20] LABS: Alanine Aminotransferase 19 IU/L (<50); Albumin 4.3 g/dL (3.5-5.0); Albumin Globulin Ratio 1.4 (1.0-2.8); Alkaline Phosphatase 65 U/L (38-126); Aspartate Aminotransferase 25 IU/L (17-59); BUN Creatinine Ratio 18.7 (6-22); Bilirubin Total 0.7 mg/dL (0.2-1.3); Blood Urea Nitrogen 14 mg/dL (9-20); Calcium 9.5 mg/dL (8.4-10.2); Carbon Dioxide 27 mmol/L (22-32); Chloride 98 mmol/L (98-107); Estimated Glomerular Filt Rate > 60.0 mL/min (>60); Globulin 3.1 g/dL (1.7-4.1); Glucose 118 mg/dL (80-110); HEMOLYSIS 35 (0-50); Lipase 618 U/L (23-300); Potassium 4.3 mmol/L (3.4-5.1); Sodium 134 mmol/L (137-145); Total Protein 7.4 g/dL (6.3-8.2)
--- NOTE | 2020-09-27 16:20 | PC.NURSE ---
pt had 135ml bladder post void, pt complains of pain in left back wrapping around to groin.
--- NOTE | 2020-09-27 16:27 | DI.CT.S_ITS ---
PROCEDURE: CT ABDOMEN PELVIS W CON INDICATIONS: severe left flank pain TECHNIQUE: After the administration of intravenous contrast, axial sections acquired from the lung bases to the pubic symphysis. Coronal and sagittal reformats were performed. For radiation dose reduction, the following was used: automated exposure control, adjustment of mA and/or kV according to patient size. COMPARISON: [facility], CT, ANGIOGRAPHY CHEST AND ABDOMEN, 03/16/2016, 11:15. FINDINGS: Image quality: There is mild motion artifact limiting evaluation. Lung bases: There is mild dependent atelectasis bilaterally. There is a small hiatal hernia. Heart: No significant findings. ABDOMEN: Liver: Unremarkable. Gallbladder: The gallbladder is contracted with gallbladder wall thickening and enhancement. There is dilatation in the region of the gallbladder neck. No calcified gallstones. Biliary ducts: Unremarkable. Pancreas: There are small foci of calcifications throughout the pancreas consistent sequelae of chronic pancreatitis. No peripancreatic fat stranding or fluid collection to suggest acute pancreatitis on CT. Spleen: Unremarkable. Adrenal Glands: Unremarkable. Kidneys and Ureters: Unremarkable. Stomach and Bowel: Stomach, small bowel loops, and colon are unremarkable. Appendix is normal in appearance. There is colonic diverticulosis without acute diverticulitis. Peritoneum: No abnormal intraperitoneal fluid. No free air. Ventral Wall: No hernias. Abdominal Nodes: No retroperitoneal or mesenteric adenopathy by size criteria. Vessels: Aorta and inferior vena cava are normal in size. PELVIS: Pelvic Organs: Unremarkable. Bladder: There is mild bladder wall thickening with mild pericystic fat stranding. Heterogeneous enlargement of the prostate is demonstrated.. Pelvic Nodes: No enlarged lymph nodes. Miscellaneous: No hernias are seen. Bones: There are bilateral healed posterior rib fractures. There is a mild superior endplate compression deformity of the L2 vertebral body anteriorly with up to approximately 30% loss of height. Findings are consistent with a chronic compression fracture previously demonstrated on the 03/16/2016 study. IMPRESSION: 1. Foci of pancreatic calcifications consistent with sequelae of chronic pancreatitis. No definite CT evidence of acute pancreatitis. 2. Contracted gallbladder with mild wall thickening and enhancement as well as mild dilatation in the region of the cystic duct. If there is clinical suspicion for cholecystitis, recommend further evaluation with ultrasound. 3. Colonic diverticulosis without acute diverticulitis. 4. Mild concentric bladder wall thickening with mild associated fat stranding. The findings are nonspecific but may reflect a cystitis. Recommend correlation with urinalysis. Dictated by: Go Griffin M.D. on 09/27/2020 at 17:29 Approved by: Go Griffin M.D. on 09/27/2020 at 17:35
--- NOTE | 2020-09-27 16:59 | ED_ITS ---
HPI - Male Genitourinary <Pernell Coelho DO - Last Filed: 09/29/20 08:08> General Chief complaint: Urogenital-Male Stated complaint: kidney/back pain Time Seen by Provider: 09/27/20 15:29 Source: patient Mode of arrival: Family Vehicle Limitations: no limitations History of Present Illness HPI Narrative: 84-year-old male former smoker with history of hypertension presents with caregivers in the chief complaint of some left upper back pain that is been present perhaps for a few weeks. He is not the greatest historian is a bit unclear if it was a sudden onset her gradually worsening. He states over the past week he has developed a radiation the pain around his left side into his left groin. He denies dizziness, weakness or lightheadedness. He has no chest pain or shortness of breath. He denies any recent injury, fall or overuse. He denies any change in bowel habits such as constipation or diarrhea. He denies dysuria, frequency or urgency. Onset (ago): day(s) Duration: constant Location: left flank Radiation: left inguinal region Severity: moderate Relieving factors: none Exacerbating factors: none Associated symptoms: Reports denies other symptoms Related Data Home Medications Medication Instructions Recorded Confirmed lisinopril 10 mg PO DAILY 06/20/19 06/20/19 saw palmetto 160 mg PO DAILY 06/20/19 06/20/19 vitamin B complex 1 tab PO DAILY 06/20/19 06/20/19 Allergies Allergy/AdvReac Type Severity Reaction Status Date / Time No Known Allergies Allergy Verified 09/27/20 12:22 Review of Systems <DO Cj Lemos Last Filed: 09/29/20 08:08> Constitutional Constitutional: Denies chills, Denies fatigue, Denies fever(s), Denies frequent falls, Denies lethargy and Denies weakness Eyes Eyes: Denies change in vision, Denies eye discharge, Denies irritation and Denies loss of vision ENT Ears, Nose, Mouth, and Throat: Denies change in voice, Denies dizziness, Denies neck pain, Denies sore throat and Denies throat swelling Cardiovascular Cardiovascular: Denies chest pain, Denies irregular heart rhythm, Denies lightheadedness, Denies palpitations, Denies dyspnea, Denies dyspnea on exertion and Denies orthopnea Respiratory Respiratory: Denies cough, Denies dyspnea, Denies dyspnea on exertion and Denies wheezing Gastrointestinal Gastrointestinal: Denies abdominal pain, Denies change in bowel habits, Denies diarrhea, Denies nausea and Denies vomiting Musculoskeletal Musculoskeletal: Reports back pain, Denies neck pain and Denies numbness Integumentary/Breasts Skin/Breast: Denies pruritus, Denies erythema, Denies rash and Denies wounds Neurologic Neurologic: Denies behavioral changes, Denies confusion, Denies dizziness, Denies frequent falls, Denies loss of vision, Denies numbness and Denies weakness Psychiatric Psychiatric: Denies anxiety, Denies behavioral changes, Denies confusion, Denies depression, Denies homicidal ideation and Denies suicidal ideation Endocrine Endocrine: Denies fatigue, Denies flushing and Denies palpitations Hematologic/Lymphatic Hematologic/Lymphatic: Denies easy bruising Allergic/Immunologic Allergic/Immunologic: Denies urticaria, Denies throat swelling and Denies wheezing Patient History <Pernell Coelho DO - Last Filed: 09/29/20 08:08> Social History Smoking Status: Former smoker Smoking Status: Former smoker alcohol intake frequency: 0-2 drinks per day Substance Use Type: does not use Exam <Pernell Coelho DO - Last Filed: 09/29/20 08:08> Narrative Exam Narrative: GENERAL: [84] year old patient appears stated age. Well- developed patient, in mild distress. Pleasantly confused HEAD: Atraumatic. Normocephalic. EYES: Pupils equal round and reactive. Extraocular motions intact. No scleral icterus. No injection or drainage. ENT: Nose without bleeding, purulent drainage. Throat without erythema, tonsillar hypertrophy or exudate. Airway patent. NECK: Trachea midline. Non tender CARDIOVASCULAR: Regular rate and rhythm without murmurs, gallops, or rubs. RESPIRATORY: Clear to auscultation. Breath sounds equal bilaterally. No wheezes, rales, or rhonchi. GASTROINTESTINAL: Abdomen soft, minimal left lower tenderness, nondistended. EXTREMITIES: No edema or joint tenderness. BACK: Nontender without deformity or crepitance. No flank tenderness. NEURO: AOx3. SKIN: No rash or erythema of visible areas Initial Vital Signs Initial Vital Signs: Vital Signs Temperature 96.0 F L 09/27/20 12:22 Pulse Rate 79 09/27/20 12:22 Respiratory Rate 19 09/27/20 12:22 Blood Pressure 171/80 H 09/27/20 12:22 Pulse Oximetry 98 09/27/20 12:22 <Melinda Mondragon DO - Last Filed: 09/27/20 20:48> Initial Vital Signs Initial Vital Signs: Vital Signs Temperature 96.0 F L 09/27/20 12:22 Pulse Rate 79 09/27/20 12:22 Respiratory Rate 19 09/27/20 12:22 Blood Pressure 171/80 H 09/27/20 12:22 Pulse Oximetry 98 09/27/20 12:22 Course <Pernell Coelho DO - Last Filed: 09/29/20 08:08> Orders Ordered: ED Orders 09/27/20 15:55 Complete Blood Count AUTO DIFF Stat Comprehensive Metabolic Panel Stat Lipase Stat 09/27/20 16:27 CT abdomen pelvis w con Stat 09/27/20 17:00 Urine Culture Stat Vital Signs Vital signs: Vital Signs - 8 hr 09/27/20 17:52 09/27/20 17:59 09/27/20 18:00 Pulse Rate 57 L 42 L 41 L Respiratory Rate Blood Pressure 145/65 H Pulse Oximetry 97 97 96 09/27/20 18:22 09/27/20 18:30 Pulse Rate 39 L 40 L Respiratory Rate 18 Blood Pressure 181/77 H Pulse Oximetry 97 96 <Melinda Mondragon DO - Last Filed: 09/27/20 20:48> Orders Ordered: ED Orders 09/27/20 15:55 Complete Blood Count AUTO DIFF Stat Comprehensive Metabolic Panel Stat Lipase Stat 09/27/20 16:27 CT abdomen pelvis w con Stat 09/27/20 17:00 Urine Culture Stat Vital Signs Vital signs: Vital Signs - 8 hr 09/27/20 17:52 09/27/20 17:59 09/27/20 18:00 Pulse Rate 57 L 42 L 41 L Respiratory Rate Blood Pressure 145/65 H Pulse Oximetry 97 97 96 09/27/20 18:22 09/27/20 18:30 Pulse Rate 39 L 40 L Respiratory Rate 18 Blood Pressure 181/77 H Pulse Oximetry 97 96 MDM - Male Genitourinary <Pernell Coelho DO - Last Filed: 09/29/20 08:08> Lab Data Result diagrams: 09/27/20 15:55 09/27/20 15:55 Labs: Lab Results 09/27/20 09/27/20 Range/Units 15:55 15:55 WBC 6.4 (4.5-11.0) X10^3/uL RBC 4.50 (4.5-5.9) X10^6/uL Hgb 14.9 (13.5-17.5) g/dL Hct 43.4 (41-53) % MCV 96.5 (80-100) fL MCH 33.1 (26-34) PG MCHC 34.3 (30-36) % RDW 14.3 (11.6-14.8) % Plt Count 256 (150-400) X10^3/uL Neut % (Auto) 80.8 H (50-75) % Lymph % (Auto) 12.8 L (25-40) % [place] % (Auto) 6.1 (3-14) % Eos % (Auto) 0.1 L (2-4) % Baso % (Auto) 0.2 (0-2) % Neut # (Auto) 5200 (3752-0618) /uL Lymph # (Auto) 800 L (2232-0826) /uL [place] # (Auto) 400 (0-900) /uL Eos # (Auto) 0 (0-450) /uL Baso # (Auto) 0 (0-100) /uL Sodium 134 L (137-145) mmol/L Potassium 4.3 (3.4-5.1) mmol/L Chloride 98 (98-107) mmol/L Carbon Dioxide 27 (22-32) mmol/L BUN 14 (9-20) mg/dL Creatinine 0.75 (0.66-1.25) mg/dL Estimated GFR > 60.0 (>60) mL/min BUN/Creatinine Ratio 18.7 (6-22) Glucose 118 H (80-110) mg/dL Calcium 9.5 (8.4-10.2) mg/dL Total Bilirubin 0.7 (0.2-1.3) mg/dL AST 25 (17-59) IU/L ALT 19 (<50) IU/L Alkaline Phosphatase 65 (38-126) U/L Total Protein 7.4 (6.3-8.2) g/dL Albumin 4.3 (3.5-5.0) g/dL Globulin 3.1 (1.7-4.1) g/dL Albumin/Globulin Ratio 1.4 (1.0-2.8) Lipase 618 H (23-300) U/L Urine Dip Bedside Urine Glucose Negative Bedside Urine Bilirubin - Negative Bedside Urine Ketone - Negative Urine Specific [place] 1.030 Bedside Urine Occult Blood - Negative Bedside Urine pH 6 Bedside Urine Protein +/- 15 Bedside Urine Urobilinogen - Negative Bedside Urine Nitrite - Negative Bedside Urine Leukocytes - Negative Esterase <Melinda Mondragon DO - Last Filed: 09/27/20 20:48> Lab Data Attestation: I reviewed the patient's lab results. Labs: Lab Results 09/27/20 09/27/20 Range/Units 15:55 15:55 WBC 6.4 (4.5-11.0) X10^3/uL RBC 4.50 (4.5-5.9) X10^6/uL Hgb 14.9 (13.5-17.5) g/dL Hct 43.4 (41-53) % MCV 96.5 (80-100) fL MCH 33.1 (26-34) PG MCHC 34.3 (30-36) % RDW 14.3 (11.6-14.8) % Plt Count 256 (150-400) X10^3/uL Neut % (Auto) 80.8 H (50-75) % Lymph % (Auto) 12.8 L (25-40) % [place] % (Auto) 6.1 (3-14) % Eos % (Auto) 0.1 L (2-4) % Baso % (Auto) 0.2 (0-2) % Neut # (Auto) 5200 (2256-5758) /uL Lymph # (Auto) 800 L (9288-4461) /uL [place] # (Auto) 400 (0-900) /uL Eos # (Auto) 0 (0-450) /uL Baso # (Auto) 0 (0-100) /uL Sodium 134 L (137-145) mmol/L Potassium 4.3 (3.4-5.1) mmol/L Chloride 98 (98-107) mmol/L Carbon Dioxide 27 (22-32) mmol/L BUN 14 (9-20) mg/dL Creatinine 0.75 (0.66-1.25) mg/dL Estimated GFR > 60.0 (>60) mL/min BUN/Creatinine Ratio 18.7 (6-22) Glucose 118 H (80-110) mg/dL Calcium 9.5 (8.4-10.2) mg/dL Total Bilirubin 0.7 (0.2-1.3) mg/dL AST 25 (17-59) IU/L ALT 19 (<50) IU/L Alkaline Phosphatase 65 (38-126) U/L Total Protein 7.4 (6.3-8.2) g/dL Albumin 4.3 (3.5-5.0) g/dL Globulin 3.1 (1.7-4.1) g/dL Albumin/Globulin Ratio 1.4 (1.0-2.8) Lipase 618 H (23-300) U/L Urine Dip Bedside Urine Glucose Negative Bedside Urine Bilirubin - Negative Bedside Urine Ketone - Negative Urine Specific [place] 1.030 Bedside Urine Occult Blood - Negative Bedside Urine pH 6 Bedside Urine Protein +/- 15 Bedside Urine Urobilinogen - Negative Bedside Urine Nitrite - Negative Bedside Urine Leukocytes - Negative Esterase MDM Narrative Medical decision making narrative: This is an 84-year-old male comes emergency department with complaint of left flank back pain radiating towards his front signed out to myself by Dr. Coelho. Patient was seen his history was reviewed he was re-examined. On exam patient does have some left flank pain but also some lower lumbar discomfort on palpation. No rash or skin changes. No anterior abdominal pain on examination. Labs were reviewed patient has an elevated lipase which may be secondary to chronic pancreatitis. Patient is not familiar having any past pancreatitis but states he does drink heavily and has drink heavily for long period of time. He also has some changes on his gallbladder but is nontender in the right upper quadrant on exam. These were both reviewed with the patient and his daughter. It is also noted he has what appears to be a chronic L2 compression fracture. Patient does not believe he had any trauma but he states he does fall intermittently and he drinks alcohol regularly so does not always remember. He is not having any red flag symptoms such as pain radiating down his legs, numbness or tingling or new weakness. Patient and daughter at bedside feel comfortable returning home. Did send urine cultures he appreciates some difficulty with urination but this is been chronic in nature. All questions answered and then deferred any pain medications. Discharge Plan Departure Patient Disposition: Home Clinical Impression: Left lumbar pain Instructions: Low Back Pain Activity Restrictions/Additional Instructions: Follow up with your physician for recheck in the next week. Your CT shows signs consistent with chronic pancreatitis and your lipase or pancreatic enzyme is slightly elevated. If you are not having any upper abdominal pain, for able to eat and drink without issue you should just follow up these labs and findings with her primary care. Your gallbladder also has some mild changes today. You may take tylenol up to 1000mg every 8 hours as needed for pain Your urine was sent for culture and can take 48-72 hours to result. Please return for fevers greater 100.4 F, rapidly worsening pain, persistent vomiting, lightheadedness or passing out, new chest pain shortness of breath or worsening abdominal pain. Inability urinate, new numbness, weakness or loss of sensation in her extremities or other new or concerning symptoms. Prescriptions: No Action lisinopril 20 mg Tablet 10 mg PO DAILY RF: 0 saw palmetto 160 mg Capsule 160 mg PO DAILY RF: 0 vitamin B complex Tablet 1 tab PO DAILY RF: 0 Referrals: Gennaro Ruelas MD [Primary Care Provider] -
[2020-09-27 17:52] VITALS: PULSE 57; O2SAT 97
[2020-09-27 17:59] VITALS: BP 145/65; PULSE 42; O2SAT 97
[2020-09-27 18:00] VITALS: PULSE 41; O2SAT 96
[2020-09-27 18:22] VITALS: BP 181/77; PULSE 39; RESP 18; O2SAT 97
[2020-09-27 18:30] VITALS: PULSE 40; O2SAT 96
== END 2020-09-27 19:02 | disposition home or self-care (01) ==
PROVIDERS: Emergency Provider Emergency Medicine; Family Provider Naturopath; PCP Internal Medicine
DX: M54.5 Low back pain (principal); R10.9 Unspecified abdominal pain
CPT/HCPCS: 36415; 51798; 74177; 80053; 81003; 83690; 85025; 87086; 99283; 99284

== ENCOUNTER 2023-02-11 13:59 | Emergency (ER) | payer MEDICARE, SELFPAY ==
[2023-02-11] VITALS (14 sets, daily range): BP systolic 147–185; BP diastolic 66–75; PULSE 70–75; RESP 14–20; TEMP 36.7; O2SAT 97–100
--- NOTE | 2023-02-11 14:00 | DI.CT.S_ITS ---
PROCEDURE: CT ANGIO HEAD AND NECK INDICATIONS: LKN yesterday, nonverbal. follows commands, ?fall, cva TECHNIQUE: After the administration of intravenous contrast, 1 mm thick sections acquired from the aortic arch through the [place] of [place]. 3-dimensional pudnqxx-hmtbiuati-ycpsoiftzx (MIP) and/or volume rendering reformats were acquired of the central intracranial vasculature and neck separately. For radiation dose reduction, the following was used: automated exposure control, adjustment of mA and/or kV according to patient size. COMPARISON: None. FINDINGS: Image quality: Diagnostic. BRAIN: CSF spaces: Ventricles are normal in size and shape. Basal cisterns are patent. No extra-axial fluid collections. Brain: Loss of martinez-white matter differentiation in the left basal ganglia. Skull and face: Calvarium and facial bones appear intact, without suspicious lesions. Orbits appear normal. Sinuses: Sinuses and mastoids are clear. HEAD CT ANGIOGRAPHY: Anterior circulation: Intracranial internal carotid arteries are normal in size and flow. The flow within the paired anterior cerebral arteries is normal and symmetric. The M1, non M2 segments of the left middle cerebral artery is not opacified. Posterior circulation: Visualized portions of the vertebral arteries demonstrate normal caliber, and join to form a normal appearing basilar artery. Flow within the posterior cerebral arteries is normal and symmetric. No aneurysms are seen. NECK CT ANGIOGRAPHY: Carotid system: The great vessels demonstrate a conventional anatomy as they arise from the aortic arch. The origins of the common carotid arteries appear patent. The common carotid arteries demonstrate normal caliber and courses. The entire left internal carotid artery is occluded. Posterior circulation: The origins of the vertebral arteries both appear widely patent. The more superior extracranial portions of both vertebral arteries also demonstrate normal courses and calibers. They join to form a normal appearing basilar artery. Soft tissues: Visualized neck soft tissues demonstrate no suspicious abnormalities. Bones: No suspicious bony lesions. Visualized cervical spine appears normally aligned. IMPRESSION: Occlusion of the left internal carotid artery, extending into the M1 and M2 segments of the left MCA. Findings discussed with Dr. Mondragon at 2:30 p.m. On 02/11/2023. Any quantitative measurements of stenosis were performed using NASCET criteria. Dictated by: Eliud Langston M.D. on 02/11/2023 at 14:30 Approved by: Eliud Langston M.D. on 02/11/2023 at 14:35
--- NOTE | 2023-02-11 14:00 | DI.RAD.S_ITS ---
PROCEDURE: XR CHEST 1V INDICATIONS: altered mental TECHNIQUE: One view of the chest was acquired. COMPARISON: [facility], CR, XR CHEST 1V, 06/20/2019, 17:29. FINDINGS: Surgical changes and devices: None. Lungs and pleura: Lungs are clear. No pleural effusions or pneumothorax. Mediastinum: Mediastinal contours appear normal. Heart size is normal. Bones and chest wall: No suspicious bony lesions. Overlying soft tissues appear unremarkable. IMPRESSION: Portable chest within normal limits for age. Dictated by: Eliud Langston M.D. on 02/11/2023 at 14:43 Approved by: Eliud Langston M.D. on 02/11/2023 at 14:43
[2023-02-11 14:08] LABS: Add Manual Diff / Slide Review NO; Basophils Absolute Auto 0 /uL (0-100); Basophils Percent Auto 0.3 % (0-2); Eosinophils Absolute Auto 0 /uL (0-450); Eosinophils Percent Auto 0.4 % (2-4); Hematocrit 44.3 % (41-53); Hemoglobin 15.2 g/dL (13.5-17.5); Lymphocytes Absolute Auto 1100 /uL (1100-4500); Lymphocytes Percent Auto 15.1 % (25-40); Mean Corpuscular HGB Conc 34.2 % (30-36); Mean Corpuscular Hemoglobin 31.7 PG (26-34); Mean Corpuscular Volume 92.7 fL (80-100); Monocytes Absolute Auto 500 /uL (0-900); Monocytes Percent Auto 6.7 % (3-14); Neutrophils Absolute Auto 5700 /uL (1500-7000); Neutrophils Percent Auto 77.5 % (50-75); Platelet Count 253 X10^3/uL (150-400); Red Blood Cell Count 4.78 X10^6/uL (4.5-5.9); Red Cell Distribution Width 13.7 % (11.6-14.8); White Blood Cell Count 7.4 X10^3/uL (4.5-11.0)
[2023-02-11 14:16] LABS: INR 1.1 (0.9-1.3); Prothrombin Time 12.2 SECONDS (10.1-12.7)
--- NOTE | 2023-02-11 14:18 | DI.CT.S_ITS ---
PROCEDURE: CT STROKE INDICATIONS: LKN yesterday, nonverbal. follows commands, ?fall, cva TECHNIQUE: Noncontrast 4.5 mm thick angled axial sections acquired from the foramen magnum to the vertex, with coronal reformats. For radiation dose reduction, the following was used: automated exposure control, adjustment of mA and/or kV according to patient size. COMPARISON: [facility], CT, CT HEAD/BRAIN WO CON, 06/20/2019, 17:38. FINDINGS: Image quality: Excellent. CSF spaces: Basal cisterns are patent. No extra-axial fluid collections. The ventricles are symmetric in size and shape. Brain: No intracranial bleed or masses. Loss of martinez-white matter differentiation in the left basal ganglia and insula. The left MCA is hyperattenuating. No midline shift. No herniation. Skull and face: Calvarium and visualized facial bones appear intact, without suspicious lesions. Sinuses: Visualized sinuses and mastoids are clear. IMPRESSION: Suspected large left MCA territory ischemic infarct. No evidence of hemorrhage. Findings discussed with Dr. Mondragon at 2:20 p.m. On 02/11/2023. This study fulfills neurological imaging criteria for inclusion or exclusion of acute stroke therapies based on available published neurological guidelines. Dictated by: Eliud Langston M.D. on 02/11/2023 at 14:18 Approved by: Eliud Langston M.D. on 02/11/2023 at 14:21
[2023-02-11 14:19] LABS: PTT Partial Thromboplastin Tim 29 SECONDS (26-36)
[2023-02-11 14:29] LABS: Alanine Aminotransferase 22 IU/L (<50); Albumin Globulin Ratio 1.3 (1.0-2.8); Alkaline Phosphatase 55 U/L (38-126); Aspartate Aminotransferase 22 IU/L (17-59); BUN Creatinine Ratio 14.5 (6-22); Bilirubin Total 0.5 mg/dL (0.2-1.3); Blood Urea Nitrogen 12 mg/dL (9-20); Calcium 9.6 mg/dL (8.4-10.2); Carbon Dioxide 25 mmol/L (22-32); Chloride 102 mmol/L (98-107); Creatine Kinase 33 U/L (55-170); Estimated Glomerular Filt Rate > 60 mL/min (>60); Ethanol (ETOH) < 10 mg/dL; Glucose 113 mg/dL (80-110); HEMOLYSIS 28 (0-50); Potassium 4.4 mmol/L (3.4-5.1); Sodium 134 mmol/L (137-145)
--- NOTE | 2023-02-11 14:37 | PC.NURSE ---
Dr. Mondragon at bedside
--- NOTE | 2023-02-11 14:38 | ED.NEUROSD ---
HPI - Neuro Symptoms/Deficit General Chief Complaint: Altered Mental Status Stated Complaint: neuro Time Seen by Provider: 02/11/23 14:00 Source: EMS Mode of arrival: EMS History of Present Illness HPI Narrative: 87-year-old male former smoker with history of hypertension who presents for altered mental status, patient is not able to speak last seen normal yesterday. Patient has caregivers that come daily reported no family or other decision makers. Patient is alert, question if there was a fall or not but patient is nonverbal today and normally speaks. Caregiver was new but neighbors were contacted and state that he is not anywhere near his baseline. Patient is alert he can not really communicate for me he can give me some yes no with his head, he indicates he is not in pain. But patient does not follow full commands. Does not appear to be on any anticoagulation. On Anticoagulants: No Related Data Home Medications Medication Instructions Recorded Confirmed lisinopril 20 mg tablet 10 mg PO DAILY 06/20/19 06/20/19 saw palmetto 160 mg capsule 160 mg PO DAILY 06/20/19 06/20/19 vitamin B complex 1 tab PO DAILY 06/20/19 06/20/19 Allergies Allergy/AdvReac Type Severity Reaction Status Date / Time No Known Allergies Allergy Verified 09/27/20 12:22 Review of Systems Review of Systems ROS Unobtainable: Unobtainable due to medical condition Hematologic/Lymphatic On Anticoagulants: No Patient History Social History Smoking Status: Former smoker Smoking Status: Former smoker alcohol intake frequency: 0-2 drinks per day Substance Use Type: does not use Exam Narrative Exam Narrative: GEN: Elderly appearing male, alert, patient appears to be in moderate distress. Patient follows some commands but not all, he does not his head yes or no to some questions. HEENT: Atraumatic, pupils are equal round reactive to light, extraocular movements are intact, nares are clear, TMs are clear with no fluid, there is no conjunctival pallor. Throat is clear without any exudates, erythema, tonsillar enlargement or uvular deviation, facial droop present. HEART: Regular rate and rhythm without murmur, clicks, rubs. Pulses are equal in upper and lower extremities LUNGS:Lungs clear to auscultation, no wheezes, rales, crackles, chest moves symmetrically ABD:bowel sounds normal, soft, non-tender, no guarding, rebound, rigidity, no masses noted, no hepatosplenomegaly :No CVA tenderness MSCL: Non-tender, no muscle atrophy, patient appears to have right-sided weakness, does not move right lower extremity or upper extremity, does have some movement with left lower extremity. Does also have some webbing inspector with the left hand. NEURO:CN 2-12 intact, sensation normal, patient does appear to have neglect. Does not answer questions does knod head, Initial Vital Signs Initial Vital Signs: Vital Signs Temperature 98.1 F 02/11/23 14:00 Pulse Rate 72 02/11/23 14:00 Respiratory Rate 20 02/11/23 14:00 Blood Pressure 185/75 H 02/11/23 14:00 Pulse Oximetry 98 02/11/23 14:00 Oxygen Delivery Method Room Air 02/11/23 14:00 Scores NIH Stroke Scale Level of Conciousness: Alert, keenly responsive Ask month/age: Answers neither question correctly, aphasic, stuporous, coma Open/close eyes, close hand: Performs both tasks correctly Best gaze horizontal: Forced deviation or total gaze paresis not overcome Visual pope: No visual loss (unable to perform) Facial palsy: Partial paralysis, total or near total paralysis of lower face Left arm drift: Some effort against gravity, cannot maintain, drifts down to bed Right arm drift: No drift for full 10 sec Left leg drift: Some effort against gravity, cannot maintain, drifts down to bed Right leg drift: No drift for full 5 sec Limb ataxia: Present in two limbs (patient does not perform with any limbs ) Sensory on face/arms/legs: Mild to moderate sensory loss, can tell touch Best language: Mute, global aphasia Dysarthria: Severe, unintelligible Extinction or inattention: Visual, tactile, auditory, spacial or personal inattention to stimuli Total NIH Stroke scale score: 19 Course Orders Ordered: ED Orders 02/11/23 13:45 Complete Blood Count AUTO DIFF Stat Comprehensive Metabolic Panel Stat Ethanol (ETOH) Stat PTT Partial Thromboplastin Narinder Stat Prothrombin Time INR Stat Troponin & CK Cardiac Panel Stat 02/11/23 14:00 CT angio head and neck Stat XR chest 1V Stat 02/11/23 14:18 CT Stroke Stat 02/11/23 14:27 EKG-12 Lead Stat 02/11/23 14:29 COVID19 -Nasal RAPID Stat 02/11/23 15:45 Urinalysis and Microscopic Stat Urine Drug Screen, Rapid Stat Discontinued Medications Sodium Chloride (Normal Saline 0.9%) 1,000 mls @ 150 mls/hr IV CONT CARLOS Last Admin: 02/11/23 14:54 Dose: Not Given Documented By: KF Vital Signs Vital signs: Vital Signs - 8 hr 02/11/23 14:00 02/11/23 14:18 02/11/23 14:19 Temperature 98.1 F Pulse Rate 72 72 Respiratory Rate 20 14 Blood Pressure 185/75 H 185/75 H Pulse Oximetry 98 98 Oxygen Delivery Method Room Air 02/11/23 14:19 02/11/23 14:30 02/11/23 14:32 Temperature Pulse Rate 72 74 75 Respiratory Rate 15 19 17 Blood Pressure Pulse Oximetry 98 98 97 Oxygen Delivery Method 02/11/23 14:32 02/11/23 14:45 02/11/23 14:45 Temperature Pulse Rate 75 Respiratory Rate 18 Blood Pressure 172/74 H 169/70 H Pulse Oximetry 99 Oxygen Delivery Method 02/11/23 15:00 02/11/23 15:00 02/11/23 15:15 Temperature Pulse Rate 71 Respiratory Rate 17 Blood Pressure 163/73 H 164/74 H Pulse Oximetry 100 Oxygen Delivery Method 02/11/23 15:15 02/11/23 15:30 02/11/23 15:30 Temperature Pulse Rate 73 71 Respiratory Rate 17 16 Blood Pressure 173/70 H Pulse Oximetry 99 99 Oxygen Delivery Method 02/11/23 15:45 02/11/23 15:45 02/11/23 16:00 Temperature Pulse Rate 70 72 Respiratory Rate 16 16 Blood Pressure 147/66 H Pulse Oximetry 99 99 Oxygen Delivery Method 02/11/23 16:00 02/11/23 16:16 02/11/23 16:16 Temperature Pulse Rate 71 Respiratory Rate 19 Blood Pressure 150/69 H 156/72 H Pulse Oximetry 99 Oxygen Delivery Method 02/11/23 16:30 02/11/23 16:30 02/11/23 16:45 Temperature Pulse Rate 71 74 Respiratory Rate 19 18 Blood Pressure 165/70 H Pulse Oximetry 99 97 Oxygen Delivery Method 02/11/23 16:45 Temperature Pulse Rate Respiratory Rate Blood Pressure 159/74 H Pulse Oximetry Oxygen Delivery Method MDM - Neuro Symptoms/Deficit Lab Data 02/11/23 13:45 02/11/23 13:45 Labs: Lab Results 02/11/23 02/11/23 02/11/23 Range/Units 13:45 13:45 14:29 WBC 7.4 (4.5-11.0) X10^3/uL RBC 4.78 (4.5-5.9) X10^6/uL Hgb 15.2 (13.5-17.5) g/dL Hct 44.3 (41-53) % MCV 92.7 (80-100) fL MCH 31.7 (26-34) PG MCHC 34.2 (30-36) % RDW 13.7 (11.6-14.8) % Plt Count 253 (150-400) X10^3/uL Neut % (Auto) 77.5 H (50-75) % Lymph % (Auto) 15.1 L (25-40) % Henry % (Auto) 6.7 (3-14) % Eos % (Auto) 0.4 L (2-4) % Baso % (Auto) 0.3 (0-2) % Neut # (Auto) 5700 (9046-6887) /uL Lymph # (Auto) 1100 (0286-2662) /uL Henry # (Auto) 500 (0-900) /uL Eos # (Auto) 0 (0-450) /uL Baso # (Auto) 0 (0-100) /uL PT 12.2 (10.1-12.7) SECONDS INR 1.1 (0.9-1.3) APTT 29 (26-36) SECONDS Sodium 134 L (137-145) mmol/L Potassium 4.4 (3.4-5.1) mmol/L Chloride 102 (98-107) mmol/L Carbon Dioxide 25 (22-32) mmol/L BUN 12 (9-20) mg/dL Creatinine 0.83 (0.66-1.25) mg/dL Estimated GFR > 60 (>60) mL/min BUN/Creatinine Ratio 14.5 (6-22) Glucose 113 H (80-110) mg/dL Calcium 9.6 (8.4-10.2) mg/dL Total Bilirubin 0.5 (0.2-1.3) mg/dL AST 22 (17-59) IU/L ALT 22 (<50) IU/L Alkaline Phosphatase 55 (38-126) U/L Total Creatine Kinase 33 L (55-170) U/L Troponin I < 0.012 (0.01-0.034) ng/mL Total Protein 7.0 (6.3-8.2) g/dL Albumin 4.0 (3.5-5.0) g/dL Globulin 3.0 (1.7-4.1) g/dL Albumin/Globulin Ratio 1.3 (1.0-2.8) Urine Color Urine Appearance Urine pH (4.5-8.0) Ur Specific [place] (1.000-1.035) Urine Protein (Negative) Urine Glucose (UA) (Negative) g/dL Urine Ketones (NEGATIVE) Urine Occult Blood (Negative) Urine Nitrate (Negative) Urine Bilirubin (NEGATIVE) Urine Urobilinogen (0.2) E.U./dL Ur Leukocyte Esterase (NEGATIVE) Urine RBC (0-5/HPF) Urine WBC (0-5/HPF) Ur Squamous Epith Cells (0-5/HPF) Urine Bacteria (None) Ur Culture Indicated? U Opiates 300ng/mL cut (Negative) Ur Oxycodone Screen (Negative) Urine Methadone Screen (Negative) Ur Barbiturates Screen (Negative) U Tricyclic Antidepress (Negative) Ur Phencyclidine Scrn (Negative) Ur Amphetamines Screen (Negative) U Methamphetamines Scrn (Negative) Ur MDMA Scrn (Ecstasy) (Negative) U Benzodiazepines Scrn (Negative) Urine Cocaine Screen (Negative) U Marijuana (THC) Screen (Negative) Ethyl Alcohol < 10 Cancelled ( - 10) mg/dL SARS-CoV-2 (PCR) Negative (Negative) 02/11/23 Range/Units 15:45 WBC (4.5-11.0) X10^3/uL RBC (4.5-5.9) X10^6/uL Hgb (13.5-17.5) g/dL Hct (41-53) % MCV (80-100) fL MCH (26-34) PG MCHC (30-36) % RDW (11.6-14.8) % Plt Count (150-400) X10^3/uL Neut % (Auto) (50-75) % Lymph % (Auto) (25-40) % Henry % (Auto) (3-14) % Eos % (Auto) (2-4) % Baso % (Auto) (0-2) % Neut # (Auto) (8607-4159) /uL Lymph # (Auto) (8867-8445) /uL Henry # (Auto) (0-900) /uL Eos # (Auto) (0-450) /uL Baso # (Auto) (0-100) /uL PT (10.1-12.7) SECONDS INR (0.9-1.3) APTT (26-36) SECONDS Sodium (137-145) mmol/L Potassium (3.4-5.1) mmol/L Chloride (98-107) mmol/L Carbon Dioxide (22-32) mmol/L BUN (9-20) mg/dL Creatinine (0.66-1.25) mg/dL Estimated GFR (>60) mL/min BUN/Creatinine Ratio (6-22) Glucose (80-110) mg/dL Calcium (8.4-10.2) mg/dL Total Bilirubin (0.2-1.3) mg/dL AST (17-59) IU/L ALT (<50) IU/L Alkaline Phosphatase (38-126) U/L Total Creatine Kinase (55-170) U/L Troponin I (0.01-0.034) ng/mL Total Protein (6.3-8.2) g/dL Albumin (3.5-5.0) g/dL Globulin (1.7-4.1) g/dL Albumin/Globulin Ratio (1.0-2.8) Urine Color Yellow Urine Appearance Clear Urine pH 8.0 (4.5-8.0) Ur Specific [place] 1.010 (1.000-1.035) Urine Protein Negative (Negative) Urine Glucose (UA) Negative (Negative) g/dL Urine Ketones Negative (NEGATIVE) Urine Occult Blood Negative (Negative) Urine Nitrate Negative (Negative) Urine Bilirubin Negative (NEGATIVE) Urine Urobilinogen 1.0 (0.2) E.U./dL Ur Leukocyte Esterase Negative (NEGATIVE) Urine RBC 0-1/hpf (0-5/HPF) Urine WBC 0-1/hpf (0-5/HPF) Ur Squamous Epith Cells None seen (0-5/HPF) Urine Bacteria Occasional (0-1) (None) Ur Culture Indicated? Cult not indicated U Opiates 300ng/mL cut Negative (Negative) Ur Oxycodone Screen Negative (Negative) Urine Methadone Screen Negative (Negative) Ur Barbiturates Screen Negative (Negative) U Tricyclic Antidepress Negative (Negative) Ur Phencyclidine Scrn Negative (Negative) Ur Amphetamines Screen Negative (Negative) U Methamphetamines Scrn Negative (Negative) Ur MDMA Scrn (Ecstasy) Negative (Negative) U Benzodiazepines Scrn Negative (Negative) Urine Cocaine Screen Negative (Negative) U Marijuana (THC) Screen Negative (Negative) Ethyl Alcohol ( - 10) mg/dL SARS-CoV-2 (PCR) (Negative) Point of Care Testing Glucose POC [address] scan - head: Radiologist's Impression: Close Brain CT (Signed) Eliud Langston - 02/11/23 Head/Neck CTA (Signed) Eliud Langston - 02/11/23 Chest X-Ray 02/11/23 Abdomen/Pelvis CT (Signed) Go Griffin - 09/27/[address] (Signed) Roslyn Ram - 06/20/19 Thoracic Spine X-Ray (Signed) Moe Huynh - 06/20/[address] (Signed) Moe Huynh - 06/20/19 Elbow X-Ray (Signed) Jeffrey Huynheer - 06/20/19 Chest X-Ray (Signed) Jeffrey Huynheemile - 06/20/[address] (Signed) Lenora Braxton - 12/10/[address] (Signed) Todd Graff - 12/10/17 [place] [address] CT Scan Report Signed Patient: Yonny Billings MR#: [id number] : 1935 Acct:[id number] Age/Sex: 87 / M Date of Service: 02/11/23 Loc: ED Accession Number: [id number] Procedure: CT Stroke Ordering Provider: Melinda Mondragon D.O. PROCEDURE: CT STROKE INDICATIONS: LKN yesterday, nonverbal. follows commands, ?fall, cva TECHNIQUE: Noncontrast 4.5 mm thick angled axial sections acquired from the foramen magnum to the vertex, with coronal reformats. For radiation dose reduction, the following was used: automated exposure control, adjustment of mA and/or kV according to patient size. COMPARISON: [facility], CT, CT HEAD/BRAIN WO CON, 06/20/2019, 17:38. FINDINGS: Image quality: Excellent. CSF spaces: Basal cisterns are patent. No extra-axial fluid collections. The ventricles are symmetric in size and shape. Brain: No intracranial bleed or masses. Loss of martinez-white matter differentiation in the left basal ganglia and insula. The left MCA is hyperattenuating. No midline shift. No herniation. Skull and face: Calvarium and visualized facial bones appear intact, without suspicious lesions. Sinuses: Visualized sinuses and mastoids are clear. IMPRESSION: Suspected large left MCA territory ischemic infarct. No evidence of hemorrhage. Findings discussed with Dr. Mondragon at 2:20 p.m. On 02/11/2023. This study fulfills neurological imaging criteria for inclusion or exclusion of acute stroke therapies based on available published neurological guidelines. Dictated by: Eliud Langston M.D. on 02/11/2023 at 14:18 Approved by: Eliud Langston M.D. on 02/11/2023 at 14:21 CTA - brain/neck: Radiologist's Impression: [place] [address] CT Scan Report Signed Patient: Yonny Billings MR#: [id number] : 1935 Acct:[id number] Age/Sex: 87 / M Date of Service: 02/11/23 Loc: ED Accession Number: [id number] Procedure: CT angio head and neck Ordering Provider: Melinda Mondragon D.O. PROCEDURE: CT ANGIO HEAD AND NECK INDICATIONS: LKN yesterday, nonverbal. follows commands, ?fall, cva TECHNIQUE: After the administration of intravenous contrast, 1 mm thick sections acquired from the aortic arch through the [place] of [place]. 3-dimensional ykznwqj-immvnjlio-vstpvzmvgl (MIP) and/or volume rendering reformats were acquired of the central intracranial vasculature and neck separately. For radiation dose reduction, the following was used: automated exposure control, adjustment of mA and/or kV according to patient size. COMPARISON: None. FINDINGS: Image quality: Diagnostic. BRAIN: CSF spaces: Ventricles are normal in size and shape. Basal cisterns are patent. No extra-axial fluid collections. Brain: Loss of martinez-white matter differentiation in the left basal ganglia. Skull and face: Calvarium and facial bones appear intact, without suspicious lesions. Orbits appear normal. Sinuses: Sinuses and mastoids are clear. HEAD CT ANGIOGRAPHY: Anterior circulation: Intracranial internal carotid arteries are normal in size and flow. The flow within the paired anterior cerebral arteries is normal and symmetric. The M1, non M2 segments of the left middle cerebral artery is not opacified. Posterior circulation: Visualized portions of the vertebral arteries demonstrate normal caliber, and join to form a normal appearing basilar artery. Flow within the posterior cerebral arteries is normal and symmetric. No aneurysms are seen. NECK CT ANGIOGRAPHY: Carotid system: The great vessels demonstrate a conventional anatomy as they arise from the aortic arch. The origins of the common carotid arteries appear patent. The common carotid arteries demonstrate normal caliber and courses. The entire left internal carotid artery is occluded. Posterior circulation: The origins of the vertebral arteries both appear widely patent. The more superior extracranial portions of both vertebral arteries also demonstrate normal courses and calibers. They join to form a normal appearing basilar artery. Soft tissues: Visualized neck soft tissues demonstrate no suspicious abnormalities. Bones: No suspicious bony lesions. Visualized cervical spine appears normally aligned. IMPRESSION: Occlusion of the left internal carotid artery, extending into the M1 and M2 segments of the left MCA. Findings discussed with Dr. Mondragon at 2:30 p.m. On 02/11/2023. Any quantitative measurements of stenosis were performed using NASCET criteria. Dictated by: Eliud Langston M.D. on 02/11/2023 at 14:30 Approved by: Eliud Langston M.D. on 02/11/2023 at 14:35 ECG Data Prior ECG tracings: available for review Interpretation: sinus rhythm, rate of 72, pr 278m pr 94, qtc 411. LAD, prior from 06/20/2019 appears similar with no acute changes. MDM Narrative Medical decision making narrative: 87-year-old male unclear acute onset spoke with daughter who states last known normal is Sunday or according to her there was a caregiver and was reported to be yesterday. Patient has obvious facial droop, is nonverbal with neglect of his right side. Patient imaging shows a large change consistent with left MCA stroke on CT non-con as well as occlusion of the left ICA extending into the M1 and M2 segments. Patient's labs overall are appropriate including CBC, CMP, troponin. Chest x-ray is negative. Called next of kin on EMR Maryan Grier [phone] (daughter). States sister or brother toddler probably be the ones to make final decision, she states there is a POLST form does not know what it says exactly but relates it maybe DNR DNI. She is unsure about intervention if was a candidate for code IR. [facility] patient is higher risk but potential for complications. Would transfer for perfusion scan for final decision about thrombectomy. Discussed will call back after discussion with family regarding goals for care. Discussed at this time patient is not able to consent for procedure. Do not have POLST form available. Difficult to ascertain exact time frame, new caregiver today. But reportedly seen normal yesterday afternoon Spoke with Maryan (daughter), Roslyn (daughter), Vargas (son) and Chapis all are legal DPOAs. Chapis and daughter at bedside after discussion with all 4 children they have agreed to go for intervention they understand that perfusion scan will be performed this will be a final deciding factor patient is a candidate and if he is potential for thrombectomy which may or may not be successful with some high-risk components for complications. Patient is maintaining his airway alert but not really following commands. Spoke with Dr. Dominguez updated they accept for transfer because of timeframe we will use airli. Stroke Core Measures Exclusion Criteria TPA in CVA: Unknown Onset of Symptoms Critical Care Time Critical Care Time Critical Care Time: Yes Total Critical Care Time: 55 Attestation: The high probability of a clinically significant, sudden or life threatening deterioration of the [neuro] system(s) required my full and direct attention, intervention and personal management. The aggregate critical care time was [] minutes. This time is in addition to time spent performing reported procedures but includes the following: [x] Data Review and interpretation [x] Patient assessment and monitoring of vital signs [x] Documentation [x] Medication orders and management Discharge Plan Departure Patient Disposition: Xfer Acute [facility] Clinical Impression: Acute ischemic left MCA stroke Prescriptions: No Action lisinopril 20 mg Tablet 10 mg PO DAILY saw palmetto 160 mg Capsule 160 mg PO DAILY vitamin B complex Tablet 1 tab PO DAILY Referrals: Gennaro Ruelas MD [Primary Care Provider] -
[2023-02-11 14:39] LABS: Troponin I < 0.012 ng/mL (0.01-0.034)
[2023-02-11 14:58] LABS: COVID19 -Nasal RAPID Negative (Negative)
[2023-02-11 15:53] LABS: Appearance Urine UA CLEAR; Bilirubin Urine UA NEGATIVE (NEGATIVE); Color Urine UA YELLOW; Glucose Urine UA NEGATIVE (Negative); Ketones Urine UA NEGATIVE (NEGATIVE); Leukocyte Esterase Urine UA NEGATIVE (NEGATIVE); Nitrite Urine UA NEGATIVE (Negative); Occult Blood Urine UA NEGATIVE (Negative); Protein Urine UA NEGATIVE (Negative)
[2023-02-11 15:54] LABS: Bacteria Urine Occasional (0-1); Culture Indicated Urine Cult Not Indicated; Squamous Epithelial Cell Urine None Seen (0-5/HPF); WBC Urine 0-1/HPF (0-5/HPF)
[2023-02-11 15:55] LABS: RBC Urine 0-1/HPF (0-5/HPF)
--- NOTE | 2023-02-11 15:57 | PC.NURSE ---
dr. saab at bedside w/ pt and family
[2023-02-11 15:59] LABS: UR Morphine/Opiate cutoff 300 Negative (Negative); Ur Creatinine Normal (Normal); Ur Specific Gravity Normal (Normal); Urine Amphetamines Negative (Negative); Urine Barbiturates Negative (Negative); Urine Benzodiazepines Negative (Negative); Urine Cocaine Negative (Negative); Urine MDMA Negative (Negative); Urine Methadone Negative (Negative); Urine Methamphetamines Negative (Negative); Urine Oxycodone Negative (Negative); Urine Phencyclidine Negative (Negative); Urine Tetrahydrocannabinol Negative (Negative); Urine Tricyclic Antidepressant Negative (Negative); Urine pH Normal (Normal)
--- NOTE | 2023-02-11 17:01 | PC.NURSE ---
bedside report to airlift team
== END 2023-02-11 17:02 | disposition short-term general hospital (02) ==
PROVIDERS: Emergency Provider Emergency Medicine; Family Provider Naturopath; PCP Internal Medicine
DX: I63.512 Cerebral infarction due to unspecified occlusion or stenosis of left middle cerebral artery (principal); R07.9 Chest pain, unspecified; R29.719 NIHSS score 19; Z20.822 Contact with and (suspected) exposure to COVID-19
CPT/HCPCS: 36415; 70450; 70496; 70498; 71045; 80053; 80305; 80320; 81001; 82550; 82962; 84484; 85025; 85610; 85730; 87635; 93005; 99284; 99291; C9803